=== PATIENT | female | born 1975 | race Caucasian/White ===

== ENCOUNTER 2016-03-19 20:55 | Inpatient (IN) | payer SELFPAY ==
[~2016-03-19] VITALS: Ht 170.2 cm; Wt 97.6 kg
[~2016-03-19 20:55] MED LIST: AMOX1TAB61 PO; ATOR10TA PO; AZIT250T PO; BENZ200C39 PO; CIPR500T94 PO; CYCL10TA2 PO; CYCL5TAB PO; DIAZ5TAB PO; ESCI20TA10 PO; FLUT9.9S NS; GABA-586 PO; HYDR-971 PO; HYDR15SO4 PO; LISI10TA2 PO; LORA10TA68 PO; MELO-150 PO; MORP15TA3 PO; NAPR375T3 PO; OXYC1TAB6 PO; PARO10TA24 PO; PRED20TA PO; PRED50TA PO; PROAIR RESPICL90 MCG IH; PROM5SYR2 PO; QUET50TA8 PO; TOPI25TA32 PO; ZOLP5TAB PO
[2016-03-19] MEDS ORDERED: IPRATRPIUM/ALBUTEROL 0.5/2.5MG 3 ML NEBU. NEB ONE ×2 (21:00→21:30)
--- NOTE | 2016-03-19 21:26 | PHYS DOC ---
Past Medical History Past Medical History: Asthma, Fibromyalgia, High Cholesterol, Hypertension Additional Past Medical Histor: OA, DJD, MIGRANES, FIBROIDS, FIBROMYALGIA Past Surgical History: Cholecystectomy, , Tubal ligation Additional Past Surgical Histo: R OVARY REMOVED, Alcohol Use: None Drug Use: None Adult General Chief Complaint Chief Complaint: ASTHMA HPI HPI 40-year-old asthmatic female who has had a couple days of cough and some subjective fever. He has been using her nebulizer machine at home without relief. She denies ever needing hospitalization for her asthma. She denies ever needing intubation. She denies any significant chest pain. Patient is requiring nasal cannula oxygen right now and was saturating 90% on room air. Currently the patient is speaking in complete sentences on nasal cannula in no acute respiratory distress. She additionally claims history of hypercholesterolemia, hypertension, fibromyalgia. Review of Systems Review of Systems Constitutional: Has fever, denies chills [] Eyes: Denies change in visual acuity, redness, or eye pain [] HENT: Denies nasal congestion or sore throat [] Respiratory: Has cough, has shortness of breath [] Cardiovascular: No additional information not addressed in HPI [] GI: Denies abdominal pain, nausea, vomiting, bloody stools or diarrhea [] : Denies dysuria or hematuria [] Musculoskeletal: Denies back pain or joint pain [] Integument: Denies rash or skin lesions [] Neurologic: Denies headache, focal weakness or sensory changes [] Endocrine: Denies polyuria or polydipsia [] Current Medications Current Medications Current Medications Medications (Trade) Dose Ordered Sig/Lan Start Time Stop Time Status Last Admin Dose Admin Albuterol Sulfate 10 mg 10 mg 1X ONCE 03/19/16 22:00 03/19/16 22:01 DC 03/19/16 23:29 10 MG Albuterol/ Ipratropium (Duoneb) 3 ml 1X ONCE 03/19/16 21:30 03/19/16 21:31 DC 03/19/16 21:22 3 ML Magnesium Sulfate/ Dextrose (Magnesium Sulfate PREMIX 1GM) 100 ml @ 100 mls/hr 1X ONCE 03/19/16 22:15 03/19/16 23:14 DC 03/19/16 22:10 100 MLS/HR Methylprednisolone Sodium Succinate (Solu-Medrol 125mg Vial) 125 mg 1X ONCE 03/19/16 21:30 03/19/16 21:31 DC 03/19/16 21:30 125 MG Potassium Chloride (Klor-Con) 60 meq 1X ONCE 03/19/16 22:00 03/19/16 22:01 DC 03/19/16 22:10 60 MEQ Allergies Allergies Allergies Coded Allergies Type Severity Reaction Last Updated Verified No Known Drug Allergies 08/03/14 No Physical Exam Physical Exam Constitutional: Well developed, well nourished, no acute distress, non-toxic appearance. [] HENT: Normocephalic, atraumatic, bilateral external ears normal, oropharynx moist, no oral exudates, nose normal. [] Eyes: PERRLA, EOMI, conjunctiva normal, no discharge. [] Neck: Normal range of motion, no tenderness, supple, no stridor. [] Cardiovascular:Heart rate regular rhythm, no murmur [] Lungs & Thorax: Moderate wheezing expiratory bilaterally in no acute distress [ ] Abdomen: Bowel sounds normal, soft, no tenderness, no masses, no pulsatile masses. [] Skin: Warm, dry, no erythema, no rash. [] Back: No tenderness, no CVA tenderness. [] Extremities: No tenderness, no cyanosis, no clubbing, ROM intact, no edema. [] Neurologic: Alert and oriented X 3, normal motor function, normal sensory function, no focal deficits noted. [] Psychologic: Affect normal, judgement normal, mood normal. [] Current Patient Data Vital Signs Vital Signs Date Time Temp Pulse Resp B/P Pulse Ox O2 Delivery O2 Flow Rate FiO2 03/19/16 23:29 94 Nasal Cannula 2.0 03/19/16 21:06 99.8 89 24 163/92 99.8 Lab Values Laboratory Tests Test 03/19/16 21:02 03/19/16 21:25 White Blood Count 14.6x10^3/uL (4.0-11.0) H Red Blood Count 4.82x10^6/uL (3.50-5.40) Hemoglobin 15.3g/dL (12.0-15.5) Hematocrit 44.4% (36.0-47.0) Mean Corpuscular Volume 92fL (79-100) Mean Corpuscular Hemoglobin 32pg (25-35) Mean Corpuscular Hemoglobin Concent 34g/dL (31-37) Red Cell Distribution Width 13.8% (11.5-14.5) Platelet Count 262x10^3/uL (140-400) Neutrophils (%) (Auto) 61% (31-73) Lymphocytes (%) (Auto) 15% (24-48) L Monocytes (%) (Auto) 6% (0-9) Eosinophils (%) (Auto) 18% (0-3) H Basophils (%) (Auto) 1% (0-3) Neutrophils # (Auto) 8.9x10^3uL (1.8-7.7) H Lymphocytes # (Auto) 2.1x10^3/uL (1.0-4.8) Monocytes # (Auto) 0.8x10^3/uL (0.0-1.1) Eosinophils # (Auto) 2.6x10^3/uL (0.0-0.7) H Basophils # (Auto) 0.1x10^3/uL (0.0-0.2) Segmented Neutrophils % 61% (35-66) Lymphocytes % 12% (24-48) L Monocytes % 8% (0-10) Eosinophils % 16% (0-5) H Basophils % 3% (0-3) Platelet Estimate Adequate (ADEQUATE) Sodium Level 143mmol/L (136-145) Potassium Level 2.7mmol/L (3.5-5.1) *L Chloride Level 106mmol/L (98-107) Carbon Dioxide Level 30mmol/L (21-32) Anion Gap 7 (6-14) Blood Urea Nitrogen 15mg/dL (7-20) Creatinine 1.4mg/dL (0.6-1.0) H Estimated GFR (Cockcroft-Gault) 41.6 Glucose Level 89mg/dL (70-99) Calcium Level 9.5mg/dL (8.5-10.1) Influenza Type A Antigen Negative (NEGATIVE) Influenza Type B Antigen Negative (NEGATIVE) Laboratory Tests 03/19/16 21:02 Laboratory Tests 03/19/16 21:02 EKG EKG [] Radiology/Procedures Radiology/Procedures One view of the chest as interpreted by me does not demonstrate an acute cardiopulmonary process. Course & Med Decision Making Course & Med Decision Making Pertinent Labs and Imaging studies reviewed. (See chart for details) This 40-year-old asthmatic is requiring submental oxygen at this time saturating at 95% on 2 L nasal cannula. Patient will obtain several DuoNeb treatments and IV steroids. I will obtain a chest film and rapid influenza swabs. Until I am able to wean the patient off oxygen after breathing treatments she will continue to be observed. Upon my second reassessment, the patient still is requiring supplemental oxygen. I will now be administering a continuous nebulizer and giving her a dose of magnesium as this is a significant asthma exacerbation. She'll still be continually observed for another hour and if she does not improve she will be admitted to the hospital. Upon my final reassessment after a continuous nebulizer and magnesium, the patient feels symptomatically better but is still requiring supplemental oxygen. The patient off supplemental oxygen continues to desaturate into the low 90s and when she ambulates she saturates at 90% on room air. Due to the fact that she is requiring supplemental oxygen I'll be admitting her to the hospital for asthma exacerbation. Her laboratory workup and chest film rule out unremarkable. I discussed the need for admission with the hospitalist, Dr. Saxena, who agreed to accept the patient for further evaluation and treatment. She was hypokalemic at 2.7 and potassium replacement was ordered. Dragon Disclaimer Dragon Disclaimer This electronic medical record was generated, in whole or in part, using a voice recognition dictation system. Departure Departure Impression: Primary Impression: Asthma exacerbation Disposition: ADMITTED INPATIENT Admitting Physician: Addison Saxena Condition: STABLE Referrals: NO PCP (PCP) RENEE WANG DO Mar 19, 2016 21:27
[2016-03-19] MEDS ORDERED: methylPREDNISolone SOD SUCC PF 125 MG/2 ML VIAL. IV ONE (21:30)
[2016-03-19 21:33] LABS: BASO # 0.1 x10^3/uL (0.0-0.2); BASO % 1 % (0-3); EOS % 18 % (0-3); HEMATOCRIT 44.4 % (36.0-47.0); HEMOGLOBIN 15.3 g/dL (12.0-15.5); LYMPH # 2.1 x10^3/uL (1.0-4.8); LYMPH % 15 % (24-48); MEAN CORPUSCULAR HEMOGLOBIN 32 pg (25-35); MEAN CORPUSCULAR HGB CONC 34 g/dL (31-37); MEAN CORPUSCULAR VOLUME 92 fL (79-100); MONO % 6 % (0-9); NEUT % 61 % (31-73); PLATELET COUNT 262 x10^3/uL (140-400); RED BLOOD COUNT 4.82 x10^6/uL (3.50-5.40); RED CELL DISTRIBUTION WIDTH 13.8 % (11.5-14.5); WHITE BLOOD COUNT 14.6 x10^3/uL (4.0-11.0)
[2016-03-19 21:46] LABS: CALCIUM 9.5 mg/dL (8.5-10.1); CREATININE 1.4 mg/dL (0.6-1.0); GFR 41.6
[2016-03-19 21:52] LABS: POTASSIUM 2.7 mmol/L (3.5-5.1)
[2016-03-19 21:54] LABS: OBC FLU VALID
[2016-03-19] MEDS ORDERED: POTASSIUM CHLORIDE 20 MEQ TABLET.ER. PO ONE (22:00)
[2016-03-19] MEDS ORDERED: ALBUTEROL SULFATE 2.5 MG/3 ML NEBU. CONT NEB ONE (22:00)
[2016-03-19] MEDS ORDERED: MAGNESIUM SULFATE 1GM 100 ML IV ONE (22:15)
[2016-03-19 22:36] LABS: % BASOS 3 % (0-3); % EOS 16 % (0-5); PLT ESTIMATE ADEQUATE (ADEQUATE)
[2016-03-20] MEDS ORDERED: NITROGLYCERIN SUBLINGUAL 0.4 MG BOTTLE OF 25. SL PRN (01:00)
[2016-03-20] MEDS ORDERED: ONDANSETRON PF 4 MG/2 ML VIAL. IV PRN (01:00)
--- NOTE | 2016-03-20 05:04 | ACF ---
Admit Criteria Forms Admit Criteria Forms Admit Criteria Forms ASTHMA Clinical Indications for Admission to Inpatient Care (Place 'X' for any and all applicable criteria): Admission is indicated for ANY ONE of the following (1)(2)(3)(4)(5): [ ]I. Absent or markedly diminished breath sounds (silent chest) [X]II. Oxygen saturation < 92% [ ]III. PaCO2 = / > 42 mm Hg (5.6 kPa) [ ]IV. Peak expiratory flow rate < 40% of predicted or personal best after treatment. [ ]V. Peak expiratory flow rate < 33% of predicted or personal before after treatment [ ]. Change in mental status [ ]VII. Ventilatory support required [ ]VIII. PaO2 < 60 mm Hg (8.0 kPa) [ ]IX. Cyanosis [ ]X. Cardiac dysrhythmia (e.g., bradycardia) [ ]XI. Hemodynamic instability [ ]XII. Radiographic evidence of complication requiring inpatient treatment (e.g., pneumonia, pneumothorax) [ ]XIII. Inpatient admission required rather than observation care (also use Asthma: Observation Care guideline as appropriate) because of ANY ONE of the following: [ ]a) Respiratory finding that is severe or persistent (eg, dyspnea, tachypnea, accessory muscle use) [ ]b) Airflow measurements less than 60% of predicted or personal best that persist (e.g., over 24 hours) or worsen despite treatments [ ]c) Supplemental oxygen or respiratory treatments for over 24 hours that are performable only in acute inpatient setting [ ]d) Other condition, treatment or monitoring requiring inpatient admission. Extended stay beyond goal length of stay may be needed for (26)(27)(28): [ ]a) Severe respiratory failure (23) (29) (30) [ ]b) Secondary causes and complications (25) [ ]c) Status asthmaticus [ ]d) Chronic obstructive asthma [ ]e) Older patients (29) [ ]f) Slow resolution [ ]g) Clinically significant exacerbation of comorbidities (eg, paul. heart failure, atrial fibrillation) The original [facility] content created by [employer] has been revised. The portions of the content which have been revised are identified through the use of italic text or in bold, and [facility] [employer] has neither reviewed nor approved the modified material. All other unmodified content is copyright [facility] Please see references footnoted in the original [facility] edition 2016 ROXANNA LAINEZ Mar 20, 2016 05:04
[2016-03-20 08:59] VITALS: BP 130/80
[2016-03-20] MEDS: IPRATRPIUM/ALBUTEROL 0.5/2.5MG 3 ML NEBU. NEB SCH ×4 (09:04→19:49)
[2016-03-20 09:08] VITALS: BP 128/85
--- NOTE | 2016-03-20 09:21 | RAD ---
INDICATION: sob COMPARISON: 02/01/2016 FINDINGS: Single view of chest obtained. No focal airspace consolidation. Mediastinal contour is unremarkable. No gross osseous destructive lesion. IMPRESSION: No focal airspace consolidation or edema.
[2016-03-20] MEDS ORDERED: ACETAMINOPHEN 325 MG TABLET. PO ONE (10:15)
[2016-03-20 11:10] VITALS: BP 145/88
[2016-03-20] MEDS ORDERED: NON FORMULARY ITEM (Albuterol Sulfate (Proair Respiclick) 1 PUFF) IH PRN (11:30)
[2016-03-20] MEDS ORDERED: HYDROCODONE/APAP 5/325MG TABLET. PO PRN ×2 (11:30)
[2016-03-20] MEDS ORDERED: HYDROCODONE/APAP 7.5/325MG ORAL 15 ML SOLUTION. PO PRN (11:30)
[2016-03-20] MEDS ORDERED: MORPHINE ER 15 MG TABLET.ER PO SCH (12:00)
[2016-03-20] MEDS ORDERED: FLUTICASONE 50MCG/NASAL SPRAY 16GM BOTTLE. NS SCH (12:00)
[2016-03-20] MEDS ORDERED: AZITHROMYCIN 250 MG TABLET PO SCH (12:00)
[2016-03-20] MEDS ORDERED: PREDNISONE 20 MG TABLET PO SCH (12:00)
[2016-03-20] MEDS ORDERED: PROMETH/CODEINE 6.25/10MG 5 ML SYRUP. PO PRN (12:30)
[2016-03-20] MEDS: ESCITALOPRAM 10 MG TABLET. PO SCH (12:49)
[2016-03-20] MEDS: MELOXICAM 7.5 MG TABLET PO SCH (12:50)
[2016-03-20] MEDS: DIAZEPAM 5 MG TABLET PO SCH ×2 (12:51→21:40)
[2016-03-20] MEDS: TOPIRAMATE 25 MG TABLET. PO SCH (12:51)
[2016-03-20] MEDS: LISINOPRIL 10 MG TABLET PO SCH (12:51)
[2016-03-20] MEDS: CETIRIZINE HCL 10 MG TABLET PO SCH (12:51)
[2016-03-20] MEDS: CEFTRIAXONE SODIUM 1 GM in IV NORMAL SALINE 50ML 50 ML IV SCH (12:52)
[2016-03-20] MEDS ORDERED: GABAPENTIN 300 MG CAPSULE. PO SCH (14:00)
[2016-03-20] MEDS ORDERED: CYCLOBENZAPRINE 10 MG TABLET. PO SCH ×2 (14:00)
[2016-03-20] MEDS ORDERED: BENZONATATE 100 MG CAPSULE. PO SCH (14:00)
[2016-03-20 15:24] VITALS: BP 137/84
--- NOTE | 2016-03-20 16:29 | HP ---
ADMIT DATE: 03/20/2016 CHIEF COMPLAINT: Shortness of breath, cough, wheezing. HISTORY OF PRESENT ILLNESS: The patient is a pleasant 40-year-old female who has multiple medical issues. She is also on 28 medications. Basically, she presents with asthma. She is short of breath. She has cough and she has got wheezing. I have discussed the case with the ER physician. We are going to admit the patient and consult pulmonary medicine, put her on IV steroids, breathing treatments and oxygen. PAST MEDICAL HISTORY: Polypharmacy, asthma, hyperlipidemia, anxiety, muscle spasms, depression, chronic pain, hypertension, arthritis, insomnia. ALLERGIES: None. FAMILY HISTORY: Hypertension. SOCIAL HISTORY: She quit smoking years ago. 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 She does not drink or take drugs either. MEDICATIONS: Reviewed, please refer to the MRAD. REVIEW OF SYSTEMS: GENERAL: No history of weight change, weakness or fevers. SKIN: No bruising, hair changes or rashes. EYES: No blurred, double or loss of vision. NOSE AND THROAT: No history of nosebleeds, hoarseness or sore throat. HEART: No history of palpitations, chest pain or shortness of breath on exertion. LUNGS: The patient complains of shortness of breath. GASTROINTESTINAL: Denies changes in appetite, nausea, vomiting, diarrhea or constipation. GENITOURINARY: No history of frequency, urgency, hesitancy or nocturia. NEUROLOGIC: Denies history of numbness, tingling, tremor or weakness. PSYCHIATRIC: No history of panic, anxiety or depression. ENDOCRINE: No history of heat or cold intolerance, polyuria or polydipsia. EXTREMITIES: Denies muscle weakness, joint pain, pain on walking or stiffness. PHYSICAL EXAMINATION: VITAL SIGNS: Temperature afebrile, pulse 94, respirations 18, blood pressure 130/80, O2 sat 91% on 3 liters. GENERAL: She is alert, cooperative, anxious. HEART: Distant S1, S2. LUNGS: Diffuse wheezing and she has a cough. ABDOMEN: Has positive bowel sounds, soft, nontender. EXTREMITIES: No edema. SKIN: No rashes. She has got some tattoos. ENDOCRINE: No thyromegaly. LYMPHATICS: No cervical nodes. HEMATOPOIETIC: No bruising. LABORATORY DATA: White count 14, hemoglobin 15, platelets 262. Electrolytes: Sodium 143, potassium 2.7, chloride 106, bicarb 30, BUN 15, creatinine 1.4, glucose 89. ASSESSMENT AND PLAN: Asthma exacerbation in a middle-aged female with leukocytosis and hypokalemia and some chronic renal insufficiency. The patient has been admitted. I will start her home meds. We will start IV steroids, breathing treatments, oxygen, consult pulmonary medicine, replace her potassium, frequent labs, IV Rocephin. YOANA ROD DO DR: GAVIOTA/su JOB#: [id number] / [id number]
[2016-03-20] MEDS ORDERED: ACETAMINOPHEN 650 MG/20.3 ML SOLUTION. PEG PRN (17:15)
[2016-03-20 19:00] VITALS: BP 107/69
--- NOTE | 2016-03-20 19:12 | PDOC ---
PULMONARY PROGRESS NOTES Vitals Vital Signs Date Time Temp Pulse Resp B/P Pulse Ox O2 Delivery O2 Flow Rate FiO2 03/20/16 16:17 Nasal Cannula 2.0 03/20/16 15:39 92 03/20/16 15:24 98.4 101 18 137/84 98.4 Labs Laboratory Tests Test 03/19/16 21:02 03/19/16 21:25 03/20/16 15:10 White Blood Count 14.6x10^3/uL (4.0-11.0) Red Blood Count 4.82x10^6/uL (3.50-5.40) Hemoglobin 15.3g/dL (12.0-15.5) Hematocrit 44.4% (36.0-47.0) Mean Corpuscular Volume 92fL (79-100) Mean Corpuscular Hemoglobin 32pg (25-35) Mean Corpuscular Hemoglobin Concent 34g/dL (31-37) Red Cell Distribution Width 13.8% (11.5-14.5) Platelet Count 262x10^3/uL (140-400) Neutrophils (%) (Auto) 61% (31-73) Lymphocytes (%) (Auto) 15% (24-48) Monocytes (%) (Auto) 6% (0-9) Eosinophils (%) (Auto) 18% (0-3) Basophils (%) (Auto) 1% (0-3) Neutrophils # (Auto) 8.9x10^3uL (1.8-7.7) Lymphocytes # (Auto) 2.1x10^3/uL (1.0-4.8) Monocytes # (Auto) 0.8x10^3/uL (0.0-1.1) Eosinophils # (Auto) 2.6x10^3/uL (0.0-0.7) Basophils # (Auto) 0.1x10^3/uL (0.0-0.2) Segmented Neutrophils % 61% (35-66) Lymphocytes % 12% (24-48) Monocytes % 8% (0-10) Eosinophils % 16% (0-5) Basophils % 3% (0-3) Platelet Estimate Adequate (ADEQUATE) Sodium Level 143mmol/L (136-145) Potassium Level 2.7mmol/L (3.5-5.1) Chloride Level 106mmol/L (98-107) Carbon Dioxide Level 30mmol/L (21-32) Anion Gap 7 (6-14) Blood Urea Nitrogen 15mg/dL (7-20) Creatinine 1.4mg/dL (0.6-1.0) Estimated GFR (Cockcroft-Gault) 41.6 Glucose Level 89mg/dL (70-99) Calcium Level 9.5mg/dL (8.5-10.1) Influenza Type A Antigen Negative (NEGATIVE) Influenza Type B Antigen Negative (NEGATIVE) Lactic Acid Level 3.0mmol/L (0.4-2.0) Laboratory Tests Test 03/19/16 21:02 03/19/16 21:25 03/20/16 15:10 White Blood Count 14.6x10^3/uL (4.0-11.0) Red Blood Count 4.82x10^6/uL (3.50-5.40) Hemoglobin 15.3g/dL (12.0-15.5) Hematocrit 44.4% (36.0-47.0) Mean Corpuscular Volume 92fL (79-100) Mean Corpuscular Hemoglobin 32pg (25-35) Mean Corpuscular Hemoglobin Concent 34g/dL (31-37) Red Cell Distribution Width 13.8% (11.5-14.5) Platelet Count 262x10^3/uL (140-400) Neutrophils (%) (Auto) 61% (31-73) Lymphocytes (%) (Auto) 15% (24-48) Monocytes (%) (Auto) 6% (0-9) Eosinophils (%) (Auto) 18% (0-3) Basophils (%) (Auto) 1% (0-3) Neutrophils # (Auto) 8.9x10^3uL (1.8-7.7) Lymphocytes # (Auto) 2.1x10^3/uL (1.0-4.8) Monocytes # (Auto) 0.8x10^3/uL (0.0-1.1) Eosinophils # (Auto) 2.6x10^3/uL (0.0-0.7) Basophils # (Auto) 0.1x10^3/uL (0.0-0.2) Segmented Neutrophils % 61% (35-66) Lymphocytes % 12% (24-48) Monocytes % 8% (0-10) Eosinophils % 16% (0-5) Basophils % 3% (0-3) Platelet Estimate Adequate (ADEQUATE) Sodium Level 143mmol/L (136-145) Potassium Level 2.7mmol/L (3.5-5.1) Chloride Level 106mmol/L (98-107) Carbon Dioxide Level 30mmol/L (21-32) Anion Gap 7 (6-14) Blood Urea Nitrogen 15mg/dL (7-20) Creatinine 1.4mg/dL (0.6-1.0) Estimated GFR (Cockcroft-Gault) 41.6 Glucose Level 89mg/dL (70-99) Calcium Level 9.5mg/dL (8.5-10.1) Influenza Type A Antigen Negative (NEGATIVE) Influenza Type B Antigen Negative (NEGATIVE) Lactic Acid Level 3.0mmol/L (0.4-2.0) Medications Active Scripts Medications Dose Route/Sig Days Date Category Zithromax (Azithromycin) 250 Mg Tablet 250 Mg PO DAILY 02/02/16 Rx Prometh-Codein 6.25-10 mg/5 ml (Promethazine HCl/Codeine) 5 Ml Syrup 5 Ml PO Q6-8HRS PRN 02/02/16 Rx Proair Respiclick (Albuterol Sulfate) 90 Mcg Aer.pow.ba 1 Puff IH PRN Q6HRS PRN 02/02/16 Rx Prednisone 50 Mg Tablet 1 Tab PO DAILY 02/02/16 Rx Benzonatate 200 Mg Capsule 1 Cap PO TID 01/17/16 Rx Prednisone 20 Mg Tablet 40 Mg PO DAILY 5 01/17/16 Rx Cyclobenzaprine Hcl 10 Mg Tablet 1 Tab PO TID 11/08/15 Rx Hydrocodone-Apap 7.5-325/15 Soln (Hydrocodone Bit/Acetaminophen) 15 Ml Solution 15 Ml PO PRN Q6HRS PRN 11/08/15 Rx Cipro (Ciprofloxacin Hcl) 500 Mg Tablet 1 Tab PO BID 11/08/15 Rx Flonase Allergy Relief (Fluticasone Propionate) 9.9 Ml Sawyer.susp 2 Sprays NS DAILY 09/27/15 Rx Prednisone 50 Mg Tablet 1 Tab PO DAILY 09/27/15 Rx [place] 5-325 Tablet (Acetaminophen/Hydrocodone Bitart) 1 Each Tablet 1 Tab PO PRN Q6HRS PRN 09/27/15 Rx Augmentin 875-125 Tablet (Amoxicillin/Potassium Clav) 1 Each Tablet 1 Tab PO BID 09/27/15 Rx [place] 5-325 Tablet (Acetaminophen/Hydrocodone Bitart) 1 Each Tablet 1 Tab PO PRN Q6HRS PRN 06/29/15 Rx Cyclobenzaprine Hcl 10 Mg Tablet 10 Mg PO TID 06/29/15 Rx Ambien (Zolpidem Tartrate) 5 Mg Tablet 1 Tab PO QHS 08/03/14 Reported Lexapro (Escitalopram Oxalate) 20 Mg Tablet 1 Tab PO DAILY 08/03/14 Reported Meloxicam 15 Mg Tablet 1 Tab PO DAILY 08/03/14 Reported Claritin (Loratadine) 10 Mg Tablet 1 Tab PO DAILY 09/16/13 Reported Gabapentin 300 Mg Capsule 1 Cap PO TID 09/16/13 Reported Morphine Sulfate Er (Morphine Sulfate) 15 Mg Tablet.er 15 Mg PO BID 05/29/13 Reported Valium (Diazepam) 5 Mg Tablet 5 Mg PO 03/13/13 Reported Cyclobenzaprine Hcl 5 Mg Tablet 5 Mg PO 03/13/13 Reported Lisinopril 10 Mg Tablet 10 Mg PO 03/13/13 Reported Lipitor (Atorvastatin Calcium) 10 Mg Tablet 10 Mg PO 03/13/13 Reported Topamax (Topiramate) 25 Mg Tablet 25 Mg PO 03/13/13 Reported Oxycodon-Acetaminophen 2.5-325 (Oxycodone Hcl/Acetaminophen) 1 Each Tablet 1 Each PO 03/13/13 Reported Impression . AECOPADIN DELACRUZ MD Mar 20, 2016 19:12
[2016-03-20] MEDS ORDERED: methylPREDNISolone SOD SUCC PF 125 MG/2 ML VIAL. IV SCH (20:00)
[2016-03-20] MEDS ORDERED: AMOXICILLIN/K CLAV 875/125MG TABLET. PO SCH (21:00)
[2016-03-20] MEDS ORDERED: NON FORMULARY ITEM (Ciprofloxacin Hcl (Cipro) 1 TAB) PO SCH (21:00)
[2016-03-20] MEDS: ATORVASTATIN CALCIUM 10 MG TABLET. PO SCH (21:40)
[2016-03-20] MEDS: BENZONATATE 100 MG CAPSULE. PO SCH (21:40)
[2016-03-20] MEDS: ZOLPIDEM 5 MG TABLET. PO SCH (21:40)
[2016-03-20 23:28] VITALS: BP 117/74
[2016-03-21 03:00] VITALS: BP 121/68
--- NOTE | 2016-03-21 06:07 | CONS ---
DATE OF CONSULTATION: 03/20/2016 ATTENDING PHYSICIAN: Dr. Mahin Castelan. REASON FOR CONSULTATION: The patient is seen in pulmonary consultation at the request of Dr. Castelan for increasing shortness of air and history of asthma. HISTORY OF PRESENT ILLNESS: The patient is a 40-year-old who presented to the Emergency Room with a 3-day history of subjective fever, increasing shortness of breath, using a nebulizer machine at home with no significant improvement. She states that she has a history of asthma, adult onset. She did not have asthma as a child. She used to smoke, but then smoked a whole lot, presented with the above, was admitted, I was asked to see in consultation. She denies any nausea, vomiting, diarrhea. PAST MEDICAL HISTORY: COPD with an asthma component, fibromyalgia, hyperlipidemia, hypertension, migraine, fibroids. PAST SURGICAL HISTORY: Status post cholecystectomy, , and tubal ligation. ALLERGIES: No known drug allergies. REVIEW OF SYSTEMS: As indicated above, otherwise 10-point system was reviewed and negative. CURRENT MEDICATION: List was reviewed. Please see the MRAD. SOCIAL HISTORY: She denies any current use of tobacco or alcohol. PHYSICAL EXAMINATION: GENERAL: The patient was in no respiratory distress. VITAL SIGNS: Stable. O2 saturation was greater than 92%, currently on 2 liters. HEENT: Eyes, the sclerae were nonicteric. NECK: Jugular venous distention was not elevated. No lymphadenopathy. CHEST: Full expansion. LUNGS: Adequate airway flow, no wheezes. CARDIOVASCULAR: Regular rate and rhythm with S1, S2, no S3. ABDOMEN: Soft, nontender, nondistended. EXTREMITIES: No clubbing, cyanosis or edema. NEUROLOGIC: The patient was awake, alert, following commands. A detailed neuro exam was not performed. LABORATORY DATA: Reviewed. Chest x-ray was clear. IMPRESSION: 1. Acute exacerbation of chronic obstructive pulmonary disease. 2. Acute nonspecific bronchitis. 3. History of tobacco dependence. PLAN: 1. I concur with current medical management including steroids and antibiotics. 2. Nebulized treatments. 3. Continue home medications. I do appreciate the privilege in sharing in the patient's care. ADIN JUDD MD DR: VERONICA/su JOB#: [id number] / [id number]
[2016-03-21 06:47] LABS: BASO % 0 % (0-3); EOS % 0 % (0-3); HEMATOCRIT 43.4 % (36.0-47.0); HEMOGLOBIN 15.1 g/dL (12.0-15.5); LYMPH # 1.1 x10^3/uL (1.0-4.8); LYMPH % 5 % (24-48); MEAN CORPUSCULAR HEMOGLOBIN 32 pg (25-35); MEAN CORPUSCULAR HGB CONC 35 g/dL (31-37); MEAN CORPUSCULAR VOLUME 91 fL (79-100); MONO % 2 % (0-9); NEUT % 93 % (31-73); PLATELET COUNT 267 x10^3/uL (140-400); RED BLOOD COUNT 4.79 x10^6/uL (3.50-5.40); RED CELL DISTRIBUTION WIDTH 14.2 % (11.5-14.5)
[2016-03-21 07:00] VITALS: BP 123/83
[2016-03-21 07:03] LABS: CALCIUM 9.1 mg/dL (8.5-10.1); CREATININE 1.2 mg/dL (0.6-1.0); GFR 49.8; POTASSIUM 3.9 mmol/L (3.5-5.1)
--- NOTE | 2016-03-21 08:43 | PDOC ---
PROGRESS NOTES Chief Complaint Chief Complaint Acute hypoxic respir distress ASSESSMENT AND PLAN: 1. Asthma exacerbation: on steroids - switch to PO; nebs, suppl O2. also ceftriax. 2. HTN: well controlled on home meds 3. HLD: on statin 4. OA, fibromyalgia: continue PO home meds 5. Migraines: on topamax 6. Dispo: anticipate home in AM Vitals Vitals Vital Signs Date Time Temp Pulse Resp B/P Pulse Ox O2 Delivery O2 Flow Rate FiO2 03/21/16 07:00 98.3 102 20 123/83 90 Nasal Cannula 2.0 98.3 Physical Exam General: Alert, Oriented X3, Cooperative, No acute distress Heart: Regular rate Lungs: Wheezing Abdomen: Normal bowel sounds, No tenderness Extremities: No edema Skin: No rashes Labs LABS Laboratory Tests Test 03/20/16 15:10 03/21/16 06:05 Lactic Acid Level 3.0mmol/L (0.4-2.0) White Blood Count 21.0x10^3/uL (4.0-11.0) Red Blood Count 4.79x10^6/uL (3.50-5.40) Hemoglobin 15.1g/dL (12.0-15.5) Hematocrit 43.4% (36.0-47.0) Mean Corpuscular Volume 91fL (79-100) Mean Corpuscular Hemoglobin 32pg (25-35) Mean Corpuscular Hemoglobin Concent 35g/dL (31-37) Red Cell Distribution Width 14.2% (11.5-14.5) Platelet Count 267x10^3/uL (140-400) Neutrophils (%) (Auto) 93% (31-73) Lymphocytes (%) (Auto) 5% (24-48) Monocytes (%) (Auto) 2% (0-9) Eosinophils (%) (Auto) 0% (0-3) Basophils (%) (Auto) 0% (0-3) Neutrophils # (Auto) 19.5x10^3uL (1.8-7.7) Lymphocytes # (Auto) 1.1x10^3/uL (1.0-4.8) Monocytes # (Auto) 0.4x10^3/uL (0.0-1.1) Eosinophils # (Auto) 0.0x10^3/uL (0.0-0.7) Basophils # (Auto) 0.0x10^3/uL (0.0-0.2) Sodium Level 144mmol/L (136-145) Potassium Level 3.9mmol/L (3.5-5.1) Chloride Level 107mmol/L (98-107) Carbon Dioxide Level 24mmol/L (21-32) Anion Gap 13 (6-14) Blood Urea Nitrogen 19mg/dL (7-20) Creatinine 1.2mg/dL (0.6-1.0) Estimated GFR (Cockcroft-Gault) 49.8 Glucose Level 137mg/dL (70-99) Calcium Level 9.1mg/dL (8.5-10.1) Review of Systems Review of Systems not feeling well this AM. gen malaise, chest tightness Comment Review of Relevant ELZBIETA MOREL MD Mar 21, 2016 08:43
[2016-03-21] MEDS ORDERED: ALBUTEROL SULFATE 2.5 MG/3 ML NEBU. NEB PRN (08:45)
--- NOTE | 2016-03-21 08:47 | PDOC ---
PULMONARY PROGRESS NOTES Subjective PT WITH NO INCREASE SOA Vitals Vital Signs Date Time Temp Pulse Resp B/P Pulse Ox O2 Delivery O2 Flow Rate FiO2 03/21/16 08:35 92 Nasal Cannula 2.0 03/21/16 07:00 98.3 102 20 123/83 98.3 ROS: No Nausea, No Chest Pain, No Abdominal Pain, No Increase Cough General: Alert Lungs: Clear Cardiovascular: S1, S2 Abdomen: Soft, Non-tender Neuro Exam: Alert Extremities: No Edema Skin: Warm Labs Laboratory Tests Test 03/19/16 21:02 03/19/16 21:25 03/20/16 15:10 03/21/16 06:05 White Blood Count 14.6x10^3/uL (4.0-11.0) 21.0x10^3/uL (4.0-11.0) Red Blood Count 4.82x10^6/uL (3.50-5.40) 4.79x10^6/uL (3.50-5.40) Hemoglobin 15.3g/dL (12.0-15.5) 15.1g/dL (12.0-15.5) Hematocrit 44.4% (36.0-47.0) 43.4% (36.0-47.0) Mean Corpuscular Volume 92fL (79-100) 91fL (79-100) Mean Corpuscular Hemoglobin 32pg (25-35) 32pg (25-35) Mean Corpuscular Hemoglobin Concent 34g/dL (31-37) 35g/dL (31-37) Red Cell Distribution Width 13.8% (11.5-14.5) 14.2% (11.5-14.5) Platelet Count 262x10^3/uL (140-400) 267x10^3/uL (140-400) Neutrophils (%) (Auto) 61% (31-73) 93% (31-73) Lymphocytes (%) (Auto) 15% (24-48) 5% (24-48) Monocytes (%) (Auto) 6% (0-9) 2% (0-9) Eosinophils (%) (Auto) 18% (0-3) 0% (0-3) Basophils (%) (Auto) 1% (0-3) 0% (0-3) Neutrophils # (Auto) 8.9x10^3uL (1.8-7.7) 19.5x10^3uL (1.8-7.7) Lymphocytes # (Auto) 2.1x10^3/uL (1.0-4.8) 1.1x10^3/uL (1.0-4.8) Monocytes # (Auto) 0.8x10^3/uL (0.0-1.1) 0.4x10^3/uL (0.0-1.1) Eosinophils # (Auto) 2.6x10^3/uL (0.0-0.7) 0.0x10^3/uL (0.0-0.7) Basophils # (Auto) 0.1x10^3/uL (0.0-0.2) 0.0x10^3/uL (0.0-0.2) Segmented Neutrophils % 61% (35-66) Lymphocytes % 12% (24-48) Monocytes % 8% (0-10) Eosinophils % 16% (0-5) Basophils % 3% (0-3) Platelet Estimate Adequate (ADEQUATE) Sodium Level 143mmol/L (136-145) 144mmol/L (136-145) Potassium Level 2.7mmol/L (3.5-5.1) 3.9mmol/L (3.5-5.1) Chloride Level 106mmol/L (98-107) 107mmol/L (98-107) Carbon Dioxide Level 30mmol/L (21-32) 24mmol/L (21-32) Anion Gap 7 (6-14) 13 (6-14) Blood Urea Nitrogen 15mg/dL (7-20) 19mg/dL (7-20) Creatinine 1.4mg/dL (0.6-1.0) 1.2mg/dL (0.6-1.0) Estimated GFR (Cockcroft-Gault) 41.6 49.8 Glucose Level 89mg/dL (70-99) 137mg/dL (70-99) Calcium Level 9.5mg/dL (8.5-10.1) 9.1mg/dL (8.5-10.1) Influenza Type A Antigen Negative (NEGATIVE) Influenza Type B Antigen Negative (NEGATIVE) Lactic Acid Level 3.0mmol/L (0.4-2.0) Laboratory Tests Test 03/20/16 15:10 03/21/16 06:05 Lactic Acid Level 3.0mmol/L (0.4-2.0) White Blood Count 21.0x10^3/uL (4.0-11.0) Red Blood Count 4.79x10^6/uL (3.50-5.40) Hemoglobin 15.1g/dL (12.0-15.5) Hematocrit 43.4% (36.0-47.0) Mean Corpuscular Volume 91fL (79-100) Mean Corpuscular Hemoglobin 32pg (25-35) Mean Corpuscular Hemoglobin Concent 35g/dL (31-37) Red Cell Distribution Width 14.2% (11.5-14.5) Platelet Count 267x10^3/uL (140-400) Neutrophils (%) (Auto) 93% (31-73) Lymphocytes (%) (Auto) 5% (24-48) Monocytes (%) (Auto) 2% (0-9) Eosinophils (%) (Auto) 0% (0-3) Basophils (%) (Auto) 0% (0-3) Neutrophils # (Auto) 19.5x10^3uL (1.8-7.7) Lymphocytes # (Auto) 1.1x10^3/uL (1.0-4.8) Monocytes # (Auto) 0.4x10^3/uL (0.0-1.1) Eosinophils # (Auto) 0.0x10^3/uL (0.0-0.7) Basophils # (Auto) 0.0x10^3/uL (0.0-0.2) Sodium Level 144mmol/L (136-145) Potassium Level 3.9mmol/L (3.5-5.1) Chloride Level 107mmol/L (98-107) Carbon Dioxide Level 24mmol/L (21-32) Anion Gap 13 (6-14) Blood Urea Nitrogen 19mg/dL (7-20) Creatinine 1.2mg/dL (0.6-1.0) Estimated GFR (Cockcroft-Gault) 49.8 Glucose Level 137mg/dL (70-99) Calcium Level 9.1mg/dL (8.5-10.1) Medications Active Scripts Medications Dose Route/Sig Days Date Category Zithromax (Azithromycin) 250 Mg Tablet 250 Mg PO DAILY 02/02/16 Rx Prometh-Codein 6.25-10 mg/5 ml (Promethazine HCl/Codeine) 5 Ml Syrup 5 Ml PO Q6-8HRS PRN 02/02/16 Rx Proair Respiclick (Albuterol Sulfate) 90 Mcg Aer.pow.ba 1 Puff IH PRN Q6HRS PRN 02/02/16 Rx Prednisone 50 Mg Tablet 1 Tab PO DAILY 02/02/16 Rx Benzonatate 200 Mg Capsule 1 Cap PO TID 01/17/16 Rx Prednisone 20 Mg Tablet 40 Mg PO DAILY 5 01/17/16 Rx Cyclobenzaprine Hcl 10 Mg Tablet 1 Tab PO TID 11/08/15 Rx Hydrocodone-Apap 7.5-325/15 Soln (Hydrocodone Bit/Acetaminophen) 15 Ml Solution 15 Ml PO PRN Q6HRS PRN 11/08/15 Rx Cipro (Ciprofloxacin Hcl) 500 Mg Tablet 1 Tab PO BID 11/08/15 Rx Flonase Allergy Relief (Fluticasone Propionate) 9.9 Ml [place].susp 2 Sprays NS DAILY 09/27/15 Rx Prednisone 50 Mg Tablet 1 Tab PO DAILY 09/27/15 Rx [place] 5-325 Tablet (Acetaminophen/Hydrocodone Bitart) 1 Each Tablet 1 Tab PO PRN Q6HRS PRN 09/27/15 Rx Augmentin 875-125 Tablet (Amoxicillin/Potassium Clav) 1 Each Tablet 1 Tab PO BID 09/27/15 Rx [place] 5-325 Tablet (Acetaminophen/Hydrocodone Bitart) 1 Each Tablet 1 Tab PO PRN Q6HRS PRN 06/29/15 Rx Cyclobenzaprine Hcl 10 Mg Tablet 10 Mg PO TID 06/29/15 Rx Ambien (Zolpidem Tartrate) 5 Mg Tablet 1 Tab PO QHS 08/03/14 Reported Lexapro (Escitalopram Oxalate) 20 Mg Tablet 1 Tab PO DAILY 08/03/14 Reported Meloxicam 15 Mg Tablet 1 Tab PO DAILY 08/03/14 Reported Claritin (Loratadine) 10 Mg Tablet 1 Tab PO DAILY 09/16/13 Reported Gabapentin 300 Mg Capsule 1 Cap PO TID 09/16/13 Reported Morphine Sulfate Er (Morphine Sulfate) 15 Mg Tablet.er 15 Mg PO BID 05/29/13 Reported Valium (Diazepam) 5 Mg Tablet 5 Mg PO 03/13/13 Reported Cyclobenzaprine Hcl 5 Mg Tablet 5 Mg PO 03/13/13 Reported Lisinopril 10 Mg Tablet 10 Mg PO 03/13/13 Reported Lipitor (Atorvastatin Calcium) 10 Mg Tablet 10 Mg PO 03/13/13 Reported Topamax (Topiramate) 25 Mg Tablet 25 Mg PO 03/13/13 Reported Oxycodon-Acetaminophen 2.5-325 (Oxycodone Hcl/Acetaminophen) 1 Each Tablet 1 Each PO 03/13/13 Reported Impression . 1. Acute exacerbation of chronic obstructive pulmonary disease. 2. Acute nonspecific bronchitis. 3. History of tobacco dependence. Plan . PT BETTER THIS AM OK TO D/C ON TAPER STEROIDS AND DOXY ADIN JUDD MD Mar 21, 2016 08:47
[2016-03-21] MEDS ORDERED: NON FORMULARY ITEM (Prednisone 1 TAB) PO SCH (09:00)
[2016-03-21] MEDS ORDERED: PREDNISONE 10 MG TABLET PO SCH (09:00)
[2016-03-21] MEDS ORDERED: PREDNISONE 20 MG TABLET PO ONE (09:00)
[2016-03-21 11:00] VITALS: BP 97/55
[2016-03-21] MEDS: MELOXICAM 7.5 MG TABLET PO SCH (11:00)
[2016-03-21] MEDS: CETIRIZINE HCL 10 MG TABLET PO SCH (11:00)
[2016-03-21] MEDS: ESCITALOPRAM 10 MG TABLET. PO SCH (11:00)
[2016-03-21] MEDS: BENZONATATE 100 MG CAPSULE. PO SCH ×3 (11:01→22:12)
[2016-03-21] MEDS: TOPIRAMATE 25 MG TABLET. PO SCH (11:02)
[2016-03-21] MEDS: FLUTICASONE 50MCG/NASAL SPRAY 16GM BOTTLE. NS SCH (11:02)
[2016-03-21] MEDS: DIAZEPAM 5 MG TABLET PO SCH ×2 (11:02→22:12)
[2016-03-21] MEDS: LISINOPRIL 10 MG TABLET PO SCH (11:02)
[2016-03-21] MEDS: IPRATRPIUM/ALBUTEROL 0.5/2.5MG 3 ML NEBU. NEB SCH ×3 (11:05→19:59)
[2016-03-21] MEDS: CEFTRIAXONE SODIUM 1 GM in IV NORMAL SALINE 50ML 50 ML IV SCH (13:37)
[2016-03-21 15:00] VITALS: BP 98/51
[2016-03-21 19:54] VITALS: BP 103/65
[2016-03-21] MEDS: ZOLPIDEM 5 MG TABLET. PO SCH (22:12)
[2016-03-21] MEDS: ATORVASTATIN CALCIUM 10 MG TABLET. PO SCH (22:13)
[2016-03-21] MEDS: CLOTRIMAZOLE 1% VAGINAL CREAM 45GM TUBE. VG SCH (22:30)
[2016-03-21 22:48] VITALS: BP 123/69
[2016-03-22] VITALS (7 sets, daily range): BP systolic 100–123; BP diastolic 64–80
[2016-03-22 06:06] LABS: BASO % 0 % (0-3); EOS % 0 % (0-3); HEMATOCRIT 40.8 % (36.0-47.0); LYMPH # 3.4 x10^3/uL (1.0-4.8); LYMPH % 19 % (24-48); MEAN CORPUSCULAR HEMOGLOBIN 32 pg (25-35); MEAN CORPUSCULAR HGB CONC 34 g/dL (31-37); MEAN CORPUSCULAR VOLUME 92 fL (79-100); MONO % 5 % (0-9); NEUT % 76 % (31-73); PLATELET COUNT 229 x10^3/uL (140-400); RED BLOOD COUNT 4.42 x10^6/uL (3.50-5.40); RED CELL DISTRIBUTION WIDTH 14.1 % (11.5-14.5); WHITE BLOOD COUNT 18.3 x10^3/uL (4.0-11.0)
[2016-03-22 06:28] LABS: CALCIUM 8.5 mg/dL (8.5-10.1); CREATININE 1.1 mg/dL (0.6-1.0); POTASSIUM 3.2 mmol/L (3.5-5.1)
[2016-03-22] MEDS: IPRATRPIUM/ALBUTEROL 0.5/2.5MG 3 ML NEBU. NEB SCH ×5 (08:09→22:00)
[2016-03-22] MEDS: ESCITALOPRAM 10 MG TABLET. PO SCH (08:57)
[2016-03-22] MEDS: FLUTICASONE 50MCG/NASAL SPRAY 16GM BOTTLE. NS SCH (08:57)
[2016-03-22] MEDS: CETIRIZINE HCL 10 MG TABLET PO SCH (08:58)
[2016-03-22] MEDS: LISINOPRIL 10 MG TABLET PO SCH (08:58)
[2016-03-22] MEDS: BENZONATATE 100 MG CAPSULE. PO SCH ×3 (08:58→21:09)
[2016-03-22] MEDS: TOPIRAMATE 25 MG TABLET. PO SCH (08:58)
[2016-03-22] MEDS: MELOXICAM 7.5 MG TABLET PO SCH (08:58)
[2016-03-22] MEDS: DIAZEPAM 5 MG TABLET PO SCH ×2 (08:59→21:08)
--- NOTE | 2016-03-22 11:53 | PDOC ---
PULMONARY PROGRESS NOTES Subjective PT WITH INCREASE SOA EARLIER Vitals Vital Signs Date Time Temp Pulse Resp B/P Pulse Ox O2 Delivery O2 Flow Rate FiO2 03/22/16 11:45 Nasal Cannula 2.0 03/22/16 08:58 84 112/71 03/22/16 08:11 92 03/22/16 07:00 98.0 24 98.0 ROS: No Nausea, No Chest Pain, No Abdominal Pain, No Increase Cough General: Alert Lungs: Wheezing Cardiovascular: S1, S2 Abdomen: Soft, Non-tender Neuro Exam: Alert Extremities: No Edema Skin: Warm Labs Laboratory Tests Test 03/20/16 15:10 03/21/16 06:05 03/22/16 05:55 Lactic Acid Level 3.0mmol/L (0.4-2.0) White Blood Count 21.0x10^3/uL (4.0-11.0) 18.3x10^3/uL (4.0-11.0) Red Blood Count 4.79x10^6/uL (3.50-5.40) 4.42x10^6/uL (3.50-5.40) Hemoglobin 15.1g/dL (12.0-15.5) 14.0g/dL (12.0-15.5) Hematocrit 43.4% (36.0-47.0) 40.8% (36.0-47.0) Mean Corpuscular Volume 91fL (79-100) 92fL (79-100) Mean Corpuscular Hemoglobin 32pg (25-35) 32pg (25-35) Mean Corpuscular Hemoglobin Concent 35g/dL (31-37) 34g/dL (31-37) Red Cell Distribution Width 14.2% (11.5-14.5) 14.1% (11.5-14.5) Platelet Count 267x10^3/uL (140-400) 229x10^3/uL (140-400) Neutrophils (%) (Auto) 93% (31-73) 76% (31-73) Lymphocytes (%) (Auto) 5% (24-48) 19% (24-48) Monocytes (%) (Auto) 2% (0-9) 5% (0-9) Eosinophils (%) (Auto) 0% (0-3) 0% (0-3) Basophils (%) (Auto) 0% (0-3) 0% (0-3) Neutrophils # (Auto) 19.5x10^3uL (1.8-7.7) 13.8x10^3uL (1.8-7.7) Lymphocytes # (Auto) 1.1x10^3/uL (1.0-4.8) 3.4x10^3/uL (1.0-4.8) Monocytes # (Auto) 0.4x10^3/uL (0.0-1.1) 0.9x10^3/uL (0.0-1.1) Eosinophils # (Auto) 0.0x10^3/uL (0.0-0.7) 0.0x10^3/uL (0.0-0.7) Basophils # (Auto) 0.0x10^3/uL (0.0-0.2) 0.0x10^3/uL (0.0-0.2) Sodium Level 144mmol/L (136-145) 141mmol/L (136-145) Potassium Level 3.9mmol/L (3.5-5.1) 3.2mmol/L (3.5-5.1) Chloride Level 107mmol/L (98-107) 105mmol/L (98-107) Carbon Dioxide Level 24mmol/L (21-32) 26mmol/L (21-32) Anion Gap 13 (6-14) 10 (6-14) Blood Urea Nitrogen 19mg/dL (7-20) 24mg/dL (7-20) Creatinine 1.2mg/dL (0.6-1.0) 1.1mg/dL (0.6-1.0) Estimated GFR (Cockcroft-Gault) 49.8 55.0 Glucose Level 137mg/dL (70-99) 97mg/dL (70-99) Calcium Level 9.1mg/dL (8.5-10.1) 8.5mg/dL (8.5-10.1) Laboratory Tests Test 03/22/16 05:55 White Blood Count 18.3x10^3/uL (4.0-11.0) Red Blood Count 4.42x10^6/uL (3.50-5.40) Hemoglobin 14.0g/dL (12.0-15.5) Hematocrit 40.8% (36.0-47.0) Mean Corpuscular Volume 92fL (79-100) Mean Corpuscular Hemoglobin 32pg (25-35) Mean Corpuscular Hemoglobin Concent 34g/dL (31-37) Red Cell Distribution Width 14.1% (11.5-14.5) Platelet Count 229x10^3/uL (140-400) Neutrophils (%) (Auto) 76% (31-73) Lymphocytes (%) (Auto) 19% (24-48) Monocytes (%) (Auto) 5% (0-9) Eosinophils (%) (Auto) 0% (0-3) Basophils (%) (Auto) 0% (0-3) Neutrophils # (Auto) 13.8x10^3uL (1.8-7.7) Lymphocytes # (Auto) 3.4x10^3/uL (1.0-4.8) Monocytes # (Auto) 0.9x10^3/uL (0.0-1.1) Eosinophils # (Auto) 0.0x10^3/uL (0.0-0.7) Basophils # (Auto) 0.0x10^3/uL (0.0-0.2) Sodium Level 141mmol/L (136-145) Potassium Level 3.2mmol/L (3.5-5.1) Chloride Level 105mmol/L (98-107) Carbon Dioxide Level 26mmol/L (21-32) Anion Gap 10 (6-14) Blood Urea Nitrogen 24mg/dL (7-20) Creatinine 1.1mg/dL (0.6-1.0) Estimated GFR (Cockcroft-Gault) 55.0 Glucose Level 97mg/dL (70-99) Calcium Level 8.5mg/dL (8.5-10.1) Medications Active Scripts Medications Dose Route/Sig Days Date Category Zithromax (Azithromycin) 250 Mg Tablet 250 Mg PO DAILY 02/02/16 Rx Prometh-Codein 6.25-10 mg/5 ml (Promethazine HCl/Codeine) 5 Ml Syrup 5 Ml PO Q6-8HRS PRN 12/28/16 Rx Proair Respiclick (Albuterol Sulfate) 90 Mcg Aer.pow.ba 1 Puff IH PRN Q6HRS PRN 02/02/16 Rx Prednisone 50 Mg Tablet 1 Tab PO DAILY 02/02/16 Rx Benzonatate 200 Mg Capsule 1 Cap PO TID 01/17/16 Rx Prednisone 20 Mg Tablet 40 Mg PO DAILY 5 01/17/16 Rx Cyclobenzaprine Hcl 10 Mg Tablet 1 Tab PO TID 11/08/15 Rx Hydrocodone-Apap 7.5-325/15 Soln (Hydrocodone Bit/Acetaminophen) 15 Ml Solution 15 Ml PO PRN Q6HRS PRN 11/08/15 Rx Cipro (Ciprofloxacin Hcl) 500 Mg Tablet 1 Tab PO BID 11/08/15 Rx Flonase Allergy Relief (Fluticasone Propionate) 9.9 Ml [place].susp 2 Sprays NS DAILY 09/27/15 Rx Prednisone 50 Mg Tablet 1 Tab PO DAILY 09/27/15 Rx [place] 5-325 Tablet (Acetaminophen/Hydrocodone Bitart) 1 Each Tablet 1 Tab PO PRN Q6HRS PRN 09/27/15 Rx Augmentin 875-125 Tablet (Amoxicillin/Potassium Clav) 1 Each Tablet 1 Tab PO BID 09/27/15 Rx [place] 5-325 Tablet (Acetaminophen/Hydrocodone Bitart) 1 Each Tablet 1 Tab PO PRN Q6HRS PRN 06/29/15 Rx Cyclobenzaprine Hcl 10 Mg Tablet 10 Mg PO TID 06/29/15 Rx Ambien (Zolpidem Tartrate) 5 Mg Tablet 1 Tab PO QHS 08/03/14 Reported Lexapro (Escitalopram Oxalate) 20 Mg Tablet 1 Tab PO DAILY 08/03/14 Reported Meloxicam 15 Mg Tablet 1 Tab PO DAILY 08/03/14 Reported Claritin (Loratadine) 10 Mg Tablet 1 Tab PO DAILY 09/16/13 Reported Gabapentin 300 Mg Capsule 1 Cap PO TID 09/16/13 Reported Morphine Sulfate Er (Morphine Sulfate) 15 Mg Tablet.er 15 Mg PO BID 05/29/13 Reported Valium (Diazepam) 5 Mg Tablet 5 Mg PO 03/13/13 Reported Cyclobenzaprine Hcl 5 Mg Tablet 5 Mg PO 03/13/13 Reported Lisinopril 10 Mg Tablet 10 Mg PO 2/6/14 Reported Lipitor (Atorvastatin Calcium) 10 Mg Tablet 10 Mg PO 03/13/13 Reported Topamax (Topiramate) 25 Mg Tablet 25 Mg PO 03/13/13 Reported Oxycodon-Acetaminophen 2.5-325 (Oxycodone Hcl/Acetaminophen) 1 Each Tablet 1 Each PO 03/13/13 Reported Impression . 1. Acute exacerbation of chronic obstructive pulmonary disease. 2. Acute nonspecific bronchitis. 3. History of tobacco dependence. 4. GERD Plan . NEEDS TO AVOID CAFFEINE WT REDUCTION OK TO D/C ON TAPER STEROIDS AND DOXY NOTHING TO ADD ADIN JUDD MD Mar 22, 2016 11:53
[2016-03-22] MEDS: CEFTRIAXONE SODIUM 1 GM in IV NORMAL SALINE 50ML 50 ML IV SCH (12:41)
--- NOTE | 2016-03-22 13:43 | PDOC ---
PROGRESS NOTES Chief Complaint Chief Complaint Acute hypoxic respiratory distress ASSESSMENT AND PLAN: 1. Asthma exacerbation: on steroids - IV 125 solumedrol X1 now, switch to PO ; nebs, suppl O2. also ceftriax. 2. HTN: well controlled on home meds 3. HLD: on statin 4. OA, fibromyalgia: continue PO home meds 5. Migraines: on topamax 6. Dispo: anticipate home in AM History of Present Illness History of Present Illness wheezing, dyspneic some difficulty ambulating using 02, will need 6 min walk Vitals Vitals Vital Signs Date Time Temp Pulse Resp B/P Pulse Ox O2 Delivery O2 Flow Rate FiO2 03/22/16 11:45 Nasal Cannula 2.0 03/22/16 08:58 84 112/71 03/22/16 08:11 92 03/22/16 07:00 98.0 24 98.0 Physical Exam General: Alert, Oriented X3, Cooperative, mild distress Heart: Regular rate Lungs: Wheezing, Other (poor vol. cough with deep inspiration, chest pain on cough, ) Abdomen: Normal bowel sounds, No tenderness Extremities: No clubbing, No edema Skin: No rashes Labs LABS Laboratory Tests Test 03/22/16 05:55 White Blood Count 18.3x10^3/uL (4.0-11.0) Red Blood Count 4.42x10^6/uL (3.50-5.40) Hemoglobin 14.0g/dL (12.0-15.5) Hematocrit 40.8% (36.0-47.0) Mean Corpuscular Volume 92fL (79-100) Mean Corpuscular Hemoglobin 32pg (25-35) Mean Corpuscular Hemoglobin Concent 34g/dL (31-37) Red Cell Distribution Width 14.1% (11.5-14.5) Platelet Count 229x10^3/uL (140-400) Neutrophils (%) (Auto) 76% (31-73) Lymphocytes (%) (Auto) 19% (24-48) Monocytes (%) (Auto) 5% (0-9) Eosinophils (%) (Auto) 0% (0-3) Basophils (%) (Auto) 0% (0-3) Neutrophils # (Auto) 13.8x10^3uL (1.8-7.7) Lymphocytes # (Auto) 3.4x10^3/uL (1.0-4.8) Monocytes # (Auto) 0.9x10^3/uL (0.0-1.1) Eosinophils # (Auto) 0.0x10^3/uL (0.0-0.7) Basophils # (Auto) 0.0x10^3/uL (0.0-0.2) Sodium Level 141mmol/L (136-145) Potassium Level 3.2mmol/L (3.5-5.1) Chloride Level 105mmol/L (98-107) Carbon Dioxide Level 26mmol/L (21-32) Anion Gap 10 (6-14) Blood Urea Nitrogen 24mg/dL (7-20) Creatinine 1.1mg/dL (0.6-1.0) Estimated GFR (Cockcroft-Gault) 55.0 Glucose Level 97mg/dL (70-99) Calcium Level 8.5mg/dL (8.5-10.1) Review of Systems Review of Systems cough, wheeze, chest pain gen myalgia, does not feel improved Assessment and Plan Assessmemt and Plan Problems Medical Problems: (1) Asthma exacerbation Status: Acute Problems: Comment Review of Relevant I have reviewed the following items asher (where applicable) has been applied. Labs Laboratory Tests Test 03/20/16 15:10 03/21/16 06:05 03/22/16 05:55 Lactic Acid Level 3.0mmol/L (0.4-2.0) White Blood Count 21.0x10^3/uL (4.0-11.0) 18.3x10^3/uL (4.0-11.0) Red Blood Count 4.79x10^6/uL (3.50-5.40) 4.42x10^6/uL (3.50-5.40) Hemoglobin 15.1g/dL (12.0-15.5) 14.0g/dL (12.0-15.5) Hematocrit 43.4% (36.0-47.0) 40.8% (36.0-47.0) Mean Corpuscular Volume 91fL (79-100) 92fL (79-100) Mean Corpuscular Hemoglobin 32pg (25-35) 32pg (25-35) Mean Corpuscular Hemoglobin Concent 35g/dL (31-37) 34g/dL (31-37) Red Cell Distribution Width 14.2% (11.5-14.5) 14.1% (11.5-14.5) Platelet Count 267x10^3/uL (140-400) 229x10^3/uL (140-400) Neutrophils (%) (Auto) 93% (31-73) 76% (31-73) Lymphocytes (%) (Auto) 5% (24-48) 19% (24-48) Monocytes (%) (Auto) 2% (0-9) 5% (0-9) Eosinophils (%) (Auto) 0% (0-3) 0% (0-3) Basophils (%) (Auto) 0% (0-3) 0% (0-3) Neutrophils # (Auto) 19.5x10^3uL (1.8-7.7) 13.8x10^3uL (1.8-7.7) Lymphocytes # (Auto) 1.1x10^3/uL (1.0-4.8) 3.4x10^3/uL (1.0-4.8) Monocytes # (Auto) 0.4x10^3/uL (0.0-1.1) 0.9x10^3/uL (0.0-1.1) Eosinophils # (Auto) 0.0x10^3/uL (0.0-0.7) 0.0x10^3/uL (0.0-0.7) Basophils # (Auto) 0.0x10^3/uL (0.0-0.2) 0.0x10^3/uL (0.0-0.2) Sodium Level 144mmol/L (136-145) 141mmol/L (136-145) Potassium Level 3.9mmol/L (3.5-5.1) 3.2mmol/L (3.5-5.1) Chloride Level 107mmol/L (98-107) 105mmol/L (98-107) Carbon Dioxide Level 24mmol/L (21-32) 26mmol/L (21-32) Anion Gap 13 (6-14) 10 (6-14) Blood Urea Nitrogen 19mg/dL (7-20) 24mg/dL (7-20) Creatinine 1.2mg/dL (0.6-1.0) 1.1mg/dL (0.6-1.0) Estimated GFR (Cockcroft-Gault) 49.8 55.0 Glucose Level 137mg/dL (70-99) 97mg/dL (70-99) Calcium Level 9.1mg/dL (8.5-10.1) 8.5mg/dL (8.5-10.1) Laboratory Tests Test 03/22/16 05:55 White Blood Count 18.3x10^3/uL (4.0-11.0) Red Blood Count 4.42x10^6/uL (3.50-5.40) Hemoglobin 14.0g/dL (12.0-15.5) Hematocrit 40.8% (36.0-47.0) Mean Corpuscular Volume 92fL (79-100) Mean Corpuscular Hemoglobin 32pg (25-35) Mean Corpuscular Hemoglobin Concent 34g/dL (31-37) Red Cell Distribution Width 14.1% (11.5-14.5) Platelet Count 229x10^3/uL (140-400) Neutrophils (%) (Auto) 76% (31-73) Lymphocytes (%) (Auto) 19% (24-48) Monocytes (%) (Auto) 5% (0-9) Eosinophils (%) (Auto) 0% (0-3) Basophils (%) (Auto) 0% (0-3) Neutrophils # (Auto) 13.8x10^3uL (1.8-7.7) Lymphocytes # (Auto) 3.4x10^3/uL (1.0-4.8) Monocytes # (Auto) 0.9x10^3/uL (0.0-1.1) Eosinophils # (Auto) 0.0x10^3/uL (0.0-0.7) Basophils # (Auto) 0.0x10^3/uL (0.0-0.2) Sodium Level 141mmol/L (136-145) Potassium Level 3.2mmol/L (3.5-5.1) Chloride Level 105mmol/L (98-107) Carbon Dioxide Level 26mmol/L (21-32) Anion Gap 10 (6-14) Blood Urea Nitrogen 24mg/dL (7-20) Creatinine 1.1mg/dL (0.6-1.0) Estimated GFR (Cockcroft-Gault) 55.0 Glucose Level 97mg/dL (70-99) Calcium Level 8.5mg/dL (8.5-10.1) Microbiology 03/20/16 Blood Culture - Preliminary, Resulted NO GROWTH AFTER 1 DAY Medications Current Medications Albuterol/ Ipratropium (Duoneb) 3 ml 1X ONCE NEB Last administered on 21:04; Start 03/19/16 at 21:00; Stop 03/19/16 at 21:03; Status DC Albuterol/ Ipratropium (Duoneb) 3 ml 1X ONCE NEB Last administered on 21:22; Start 03/19/16 at 21:30; Stop 03/19/16 at 21:31; Status DC Methylprednisolone Sodium Succinate (Solu-Medrol 125mg Vial) 125 mg 1X ONCE IV Last administered on 03/19/16 21:30; Start 03/19/16 at 21:30; Stop 03/19/16 at 21:31; Status DC Potassium Chloride (Klor-Con) 60 meq 1X ONCE PO Last administered on 22:10; Start 03/19/16 at 22:00; Stop 03/19/16 at 22:01; Status DC Albuterol Sulfate 10 mg 10 mg 1X ONCE CONT NEB Last administered on 03/19/16 23:29; Start 03/19/16 at 22:00; Stop 03/19/16 at 22:01; Status DC Magnesium Sulfate/ Dextrose (Magnesium Sulfate PREMIX 1GM) 100 ml @ 100 mls/hr 1X ONCE IV Last administered on 03/19/16 22:10; Start 03/19/16 at 22:15; Stop 03/19/16 at 23:14; Status DC Ondansetron HCl (Zofran) 4 mg PRN Q8HRS PRN IV NAUSEA/VOMITING; Start 03/20/16 at 01:00; Stop 03/21/16 at 00:59; Status DC Nitroglycerin (Nitrostat) 0.4 mg PRN Q5MIN PRN SL CHEST PAIN; Start 03/20/16 at 01:00; Stop 03/21/16 at 00:59; Status DC Albuterol/ Ipratropium (Duoneb) 3 ml RTQID NEB Last administered on 03/20/16 19:49; Start 03/20/16 at 08:00; Stop 03/21/16 at 07:59; Status DC Acetaminophen (Tylenol) 650 mg 1X ONCE PO Last administered on 03/20/16 10:01 ; Start 03/20/16 at 10:15; Stop 03/20/16 at 10:16; Status DC Amoxicillin/ Clavulanate Potassium (Augmentin 875/ 125mg) 1 tab BID PO ; Start 03/20/16 at 21:00; Status UNV Atorvastatin Calcium (Lipitor) 10 mg QHS PO Last administered on 03/21/16 22: 13; Start 03/20/16 at 21:00 Azithromycin (Zithromax) 250 mg DAILY PO ; Start 03/20/16 at 12:00; Status Cancel Cyclobenzaprine HCl (Flexeril) 10 mg TID PO ; Start 03/20/16 at 14:00; Stop at 14:00; Status DC Cyclobenzaprine HCl (Flexeril) 10 mg TID PO ; Start 03/20/16 at 14:00; Stop at 14:00; Status DC Diazepam (Valium) 5 mg BID PO Last administered on 03/22/16 08:59; Start 03/20 at 12:00 Gabapentin (Neurontin) 300 mg TID PO ; Start 03/20/16 at 14:00; Status Cancel Acetaminophen/ Hydrocodone Bitart (Lortab 7.5-325/ 15ml Oral Solution) 15 ml PRN Q6HRS PRN PO PAIN; Start 03/20/16 at 11:30 Acetaminophen/ Hydrocodone Bitart (Lortab 5/325) 1 tab PRN Q6HRS PRN PO PAIN; Start 03/20/16 at 11:30 Acetaminophen/ Hydrocodone Bitart (Lortab 5/325) 1 tab PRN Q6HRS PRN PO PAIN; Start 03/20/16 at 11:30; Status UNV Lisinopril (Prinivil) 10 mg DAILY PO Last administered on 03/22/16 08:58; Start 03/20/16 at 12:00 Morphine Sulfate (Ms Contin) 15 mg BID PO ; Start 03/20/16 at 12:00; Status Cancel Prednisone (Prednisone) 40 mg DAILY PO ; Start 03/20/16 at 12:00; Status Cancel Topiramate (Topamax) 25 mg DAILY PO Last administered on 03/22/16 08:58; Start 03/20/16 at 12:00 Zolpidem Tartrate (Ambien) 5 mg QHS PO Last administered on 03/21/16 22:12; Start 03/20/16 at 21:00 Non-Formulary Medication 1 puff PRN Q6HRS PRN IH SHORTNESS OF BREATH; Start at 11:30; Stop 03/20/16 at 12:04; Status DC Benzonatate (Tessalon Perle) 200 mg [id number] PO ; Start 03/20/16 at 14:00; Status Cancel Non-Formulary Medication 1 tab BID PO ; Start 03/20/16 at 21:00; Status UNV Escitalopram Oxalate (Lexapro) 20 mg DAILY PO Last administered on 03/22/16 08 :57; Start 03/20/16 at 12:00 Fluticasone Propionate (Flonase) 2 spray DAILY NS ; Start 03/20/16 at 12:00; Stop 03/20/16 at 12:39; Status DC Cetirizine HCl (Zyrtec) 10 mg DAILY PO Last administered on 03/22/16 08:58; Start 03/20/16 at 12:00 Meloxicam (Mobic) 15 mg DAILY PO Last administered on 03/22/16 08:58; Start at 12:00 Non-Formulary Medication 1 tab DAILY PO ; Start 03/21/16 at 09:00; Stop at 09:00; Status DC Prednisone (Prednisone) 50 mg DAILY PO ; Start 03/21/16 at 09:00; Status Cancel Promethazine HCl/ Codeine 5 ml 5 ml PRN Q6HRS PRN PO COUGH Last administered on 03/21/16 06:48; Start 03/20/16 at 12:30 Ceftriaxone Sodium/Sodium Chloride (Rocephin/Iv Sodium Chloride 0.9% 50ml) 50 ml @ 100 mls/hr Q24H IV Last administered on 03/22/16 12:41; Start 03/20/16 at 12:00 Fluticasone Propionate (Flonase) 2 spray DAILY NS Last administered on 08:57; Start 03/21/16 at 09:00 Acetaminophen (Tylenol) 650 mg PRN Q6HRS PRN PEG MILD PAIN / TEMP Last administered on 03/21/16 17:01; Start 03/20/16 at 17:15 Methylprednisolone Sodium Succinate (Solu-Medrol 125mg Vial) 60 mg BID IV Last administered on 03/20/16 21:41; Start 03/20/16 at 20:00; Stop 03/21/16 at 08:40 ; Status DC Benzonatate (Tessalon Perle) 100 mg [id number] PO Last administered on 03/22/16 12 :42; Start 03/20/16 at 21:00 Prednisone (Prednisone) 60 mg 1X ONCE PO Last administered on 03/21/16 11:17 ; Start 03/21/16 at 09:00; Stop 03/21/16 at 09:01; Status DC Albuterol/ Ipratropium (Duoneb) 3 ml RTQID NEB Last administered on 03/22/16 11:44; Start 03/21/16 at 12:00 Albuterol Sulfate (Ventolin Neb Soln) 2.5 mg PRN Q4HRS PRN NEB SHORTNESS OF BREATH; Start 03/21/16 at 08:45 Clotrimazole (Mycelex-7) 1 shayne QHS VG Last administered on 03/21/16 22:30; Start 03/21/16 at 22:30; Stop 03/28/16 at 22:29 Active Scripts Active Zithromax (Azithromycin) 250 Mg Tablet 250 Mg PO DAILY Prometh-Codein 6.25-10 mg/5 ml (Promethazine HCl/Codeine) 5 Ml Syrup 5 Ml PO Q6- 8HRS PRN Proair Respiclick (Albuterol Sulfate) 90 Mcg Aer.pow.ba 1 Puff IH PRN Q6HRS PRN Prednisone 50 Mg Tablet 1 Tab PO DAILY Benzonatate 200 Mg Capsule 1 Cap PO TID Prednisone 20 Mg Tablet 40 Mg PO DAILY 5 Days Cyclobenzaprine Hcl 10 Mg Tablet 1 Tab PO TID Hydrocodone-Apap 7.5-325/15 Soln (Hydrocodone Bit/Acetaminophen) 15 Ml Solution 15 Ml PO PRN Q6HRS PRN Cipro (Ciprofloxacin Hcl) 500 Mg Tablet 1 Tab PO BID Flonase Allergy Relief (Fluticasone Propionate) 9.9 Ml [place].susp 2 Sprays NS DAILY Prednisone 50 Mg Tablet 1 Tab PO DAILY [place] 5-325 Tablet (Acetaminophen/Hydrocodone Bitart) 1 Each Tablet 1 Tab PO PRN Q6HRS PRN Augmentin 875-125 Tablet (Amoxicillin/Potassium Clav) 1 Each Tablet 1 Tab PO BID [place] 5-325 Tablet (Acetaminophen/Hydrocodone Bitart) 1 Each Tablet 1 Tab PO PRN Q6HRS PRN Cyclobenzaprine Hcl 10 Mg Tablet 10 Mg PO TID Reported Ambien (Zolpidem Tartrate) 5 Mg Tablet 1 Tab PO QHS Lexapro (Escitalopram Oxalate) 20 Mg Tablet 1 Tab PO DAILY Meloxicam 15 Mg Tablet 1 Tab PO DAILY Claritin (Loratadine) 10 Mg Tablet 1 Tab PO DAILY Gabapentin 300 Mg Capsule 1 Cap PO TID Morphine Sulfate Er (Morphine Sulfate) 15 Mg Tablet.er 15 Mg PO BID Valium (Diazepam) 5 Mg Tablet 5 Mg PO Cyclobenzaprine Hcl 5 Mg Tablet 5 Mg PO Lisinopril 10 Mg Tablet 10 Mg PO Lipitor (Atorvastatin Calcium) 10 Mg Tablet 10 Mg PO Topamax (Topiramate) 25 Mg Tablet 25 Mg PO Oxycodon-Acetaminophen 2.5-325 (Oxycodone Hcl/Acetaminophen) 1 Each Tablet 1 Each PO Vitals/I & O Vital Sign - Last 24 Hours 03/21/16 03/21/16 03/21/16 03/21/16 15:00 15:09 19:54 19:59 Temp 98.0 97.7 98.0 97.7 Pulse 89 93 Resp 20 20 B/P 98/51 103/65 Pulse Ox 90 92 95 92 O2 Delivery Nasal Cannula Nasal Cannula Nasal Cannula Nasal Cannula O2 Flow Rate 2.0 2.0 2.5 2.0 03/21/16 03/21/16 03/22/16 03/22/16 20:00 22:48 03:59 07:00 Temp 98.2 97.7 98.0 98.2 97.7 98.0 Pulse 64 67 84 Resp 20 20 24 B/P 123/69 103/74 112/71 Pulse Ox 92 93 96 O2 Delivery Nasal Cannula Nasal Cannula Nasal Cannula Room Air O2 Flow Rate 2.0 2.0 2.5 03/22/16 03/22/16 03/22/16 03/22/16 08:11 08:20 08:58 11:45 Pulse 84 B/P 112/71 Pulse Ox 92 O2 Delivery Nasal Cannula Nasal Cannula Nasal Cannula O2 Flow Rate 2.0 2.0 2.0 Intake and Output 03/21/16 03/21/16 03/22/16 15:00 23:00 07:00 Intake Total 50 ml 240 ml Balance 50 ml 240 ml JOSHUA GUALLPA MD Mar 22, 2016 13:43
[2016-03-22] MEDS ORDERED: POTASSIUM CHLORIDE 20 MEQ TABLET.ER. PO ONE (13:45)
[2016-03-22] MEDS ORDERED: MAGNESIUM SULFATE 2GM 50 ML IV ONE (13:45)
[2016-03-22] MEDS ORDERED: methylPREDNISolone SOD SUCC PF 125 MG/2 ML VIAL. IV ONE (13:45)
[2016-03-22] MEDS ORDERED: TRAMADOL 50 MG TABLET. PO PRN (13:45)
[2016-03-22] MEDS ORDERED: HYDROCODONE/CHLORPHEN POLIS 5 ML SUS.ER.12H. PO PRN ×2 (13:45→13:51)
--- NOTE | 2016-03-22 14:54 | RAD ---
INDICATION: dyspnea, cough, hypoxia COMPARISON: 03/19/2016 FINDINGS: 2 views of chest obtained. No focal airspace consolidation. Mediastinal contour is unremarkable. No gross osseous destructive lesion. Degenerative spurring thoracic spine. IMPRESSION: No focal airspace consolidation or edema.
[2016-03-22] MEDS ORDERED: POLYETHYLENE GLYCOL 3350 17 GM PACKET. PO PRN (15:30)
[2016-03-22] MEDS: BUDESONIDE 0.5 MG/2 ML NEBU NEB SCH (19:58)
[2016-03-22] MEDS: CLOTRIMAZOLE 1% VAGINAL CREAM 45GM TUBE. VG SCH (21:08)
[2016-03-22] MEDS: ATORVASTATIN CALCIUM 10 MG TABLET. PO SCH (21:08)
[2016-03-22] MEDS: ZOLPIDEM 5 MG TABLET. PO SCH (21:09)
[2016-03-23 03:26] VITALS: BP 107/77
[2016-03-23 07:00] VITALS: BP 110/59
[2016-03-23] MEDS: BUDESONIDE 0.5 MG/2 ML NEBU NEB SCH (07:27)
[2016-03-23] MEDS: IPRATRPIUM/ALBUTEROL 0.5/2.5MG 3 ML NEBU. NEB SCH ×2 (07:27→11:27)
[2016-03-23] MEDS ORDERED: PREDNISONE 20 MG TABLET PO SCH (08:00)
[2016-03-23] MEDS: CETIRIZINE HCL 10 MG TABLET PO SCH (08:55)
[2016-03-23] MEDS: ESCITALOPRAM 10 MG TABLET. PO SCH (08:56)
[2016-03-23] MEDS: BENZONATATE 100 MG CAPSULE. PO SCH (08:57)
[2016-03-23] MEDS: MELOXICAM 7.5 MG TABLET PO SCH (08:57)
[2016-03-23] MEDS: DIAZEPAM 5 MG TABLET PO SCH (08:57)
[2016-03-23] MEDS: TOPIRAMATE 25 MG TABLET. PO SCH (08:57)
[2016-03-23] MEDS: LISINOPRIL 10 MG TABLET PO SCH (08:58)
[2016-03-23] MEDS: FLUTICASONE 50MCG/NASAL SPRAY 16GM BOTTLE. NS SCH (08:59)
[2016-03-23] MEDS ORDERED: POLYETHYLENE GLYCOL 3350 17 GM PACKET. PO SCH (09:00)
--- NOTE | 2016-03-23 09:44 | PDOC ---
PULMONARY PROGRESS NOTES Subjective PT WITH INCREASE SOA EARLIER Vitals Vital Signs Date Time Temp Pulse Resp B/P Pulse Ox O2 Delivery O2 Flow Rate FiO2 03/23/16 08:58 77 110/59 03/23/16 07:22 94 Nasal Cannula 2.0 03/23/16 07:00 97.7 18 97.7 ROS: No Nausea, No Chest Pain, No Abdominal Pain, No Increase Cough General: Alert Lungs: Wheezing, Other (poor vol. cough with deep inspiration, chest pain on cough, ) Cardiovascular: S1, S2 Abdomen: Soft, Non-tender Neuro Exam: Alert Extremities: No Edema Skin: Warm Labs Laboratory Tests Test 03/22/16 05:55 White Blood Count 18.3x10^3/uL (4.0-11.0) Red Blood Count 4.42x10^6/uL (3.50-5.40) Hemoglobin 14.0g/dL (12.0-15.5) Hematocrit 40.8% (36.0-47.0) Mean Corpuscular Volume 92fL (79-100) Mean Corpuscular Hemoglobin 32pg (25-35) Mean Corpuscular Hemoglobin Concent 34g/dL (31-37) Red Cell Distribution Width 14.1% (11.5-14.5) Platelet Count 229x10^3/uL (140-400) Neutrophils (%) (Auto) 76% (31-73) Lymphocytes (%) (Auto) 19% (24-48) Monocytes (%) (Auto) 5% (0-9) Eosinophils (%) (Auto) 0% (0-3) Basophils (%) (Auto) 0% (0-3) Neutrophils # (Auto) 13.8x10^3uL (1.8-7.7) Lymphocytes # (Auto) 3.4x10^3/uL (1.0-4.8) Monocytes # (Auto) 0.9x10^3/uL (0.0-1.1) Eosinophils # (Auto) 0.0x10^3/uL (0.0-0.7) Basophils # (Auto) 0.0x10^3/uL (0.0-0.2) Sodium Level 141mmol/L (136-145) Potassium Level 3.2mmol/L (3.5-5.1) Chloride Level 105mmol/L (98-107) Carbon Dioxide Level 26mmol/L (21-32) Anion Gap 10 (6-14) Blood Urea Nitrogen 24mg/dL (7-20) Creatinine 1.1mg/dL (0.6-1.0) Estimated GFR (Cockcroft-Gault) 55.0 Glucose Level 97mg/dL (70-99) Calcium Level 8.5mg/dL (8.5-10.1) Medications Active Scripts Medications Dose Route/Sig Days Date Category Zithromax (Azithromycin) 250 Mg Tablet 250 Mg PO DAILY 02/02/16 Rx Prometh-Codein 6.25-10 mg/5 ml (Promethazine HCl/Codeine) 5 Ml Syrup 5 Ml PO Q6-8HRS PRN 02/02/16 Rx Proair Respiclick (Albuterol Sulfate) 90 Mcg Aer.pow.ba 1 Puff IH PRN Q6HRS PRN 02/02/16 Rx Prednisone 50 Mg Tablet 1 Tab PO DAILY 02/02/16 Rx Benzonatate 200 Mg Capsule 1 Cap PO TID 01/17/16 Rx Prednisone 20 Mg Tablet 40 Mg PO DAILY 5 01/17/16 Rx Cyclobenzaprine Hcl 10 Mg Tablet 1 Tab PO TID 11/08/15 Rx Hydrocodone-Apap 7.5-325/15 Soln (Hydrocodone Bit/Acetaminophen) 15 Ml Solution 15 Ml PO PRN Q6HRS PRN 11/08/15 Rx Cipro (Ciprofloxacin Hcl) 500 Mg Tablet 1 Tab PO BID 11/08/15 Rx Flonase Allergy Relief (Fluticasone Propionate) 9.9 Ml [place].susp 2 Sprays NS DAILY 09/27/15 Rx Prednisone 50 Mg Tablet 1 Tab PO DAILY 09/27/15 Rx [place] 5-325 Tablet (Acetaminophen/Hydrocodone Bitart) 1 Each Tablet 1 Tab PO PRN Q6HRS PRN 09/27/15 Rx Augmentin 875-125 Tablet (Amoxicillin/Potassium Clav) 1 Each Tablet 1 Tab PO BID 09/27/15 Rx [place] 5-325 Tablet (Acetaminophen/Hydrocodone Bitart) 1 Each Tablet 1 Tab PO PRN Q6HRS PRN 06/29/15 Rx Cyclobenzaprine Hcl 10 Mg Tablet 10 Mg PO TID 06/29/15 Rx Ambien (Zolpidem Tartrate) 5 Mg Tablet 1 Tab PO QHS 08/03/14 Reported Lexapro (Escitalopram Oxalate) 20 Mg Tablet 1 Tab PO DAILY 08/03/14 Reported Meloxicam 15 Mg Tablet 1 Tab PO DAILY 08/03/14 Reported Claritin (Loratadine) 10 Mg Tablet 1 Tab PO DAILY 09/16/13 Reported Gabapentin 300 Mg Capsule 1 Cap PO TID 09/16/13 Reported Morphine Sulfate Er (Morphine Sulfate) 15 Mg Tablet.er 15 Mg PO BID 05/29/13 Reported Valium (Diazepam) 5 Mg Tablet 5 Mg PO 03/13/13 Reported Cyclobenzaprine Hcl 5 Mg Tablet 5 Mg PO 03/13/13 Reported Lisinopril 10 Mg Tablet 10 Mg PO 03/13/13 Reported Lipitor (Atorvastatin Calcium) 10 Mg Tablet 10 Mg PO 03/13/13 Reported Topamax (Topiramate) 25 Mg Tablet 25 Mg PO 03/13/13 Reported Oxycodon-Acetaminophen 2.5-325 (Oxycodone Hcl/Acetaminophen) 1 Each Tablet 1 Each PO 03/13/13 Reported Impression . 1. Acute exacerbation of chronic obstructive pulmonary disease. 2. Acute nonspecific bronchitis. 3. History of tobacco dependence. 4. GERD Plan . NEEDS TO AVOID CAFFEINE WT REDUCTION OK TO D/C ON TAPER STEROIDS AND DOXY NOTHING TO ADD ADIN JUDD MD Mar 23, 2016 09:43
[2016-03-23 11:03] VITALS: BP 113/60
[2016-03-23] MEDS ORDERED: DOXY100C2 PO (12:02)
--- NOTE | 2016-03-23 12:04 | PDOC3 ---
Discharge Summary Visit Information Date of Admission: Mar 20, 2016 Date of Discharge: Mar 23, 2016 Admitting Diagnosis Comment: Asthma exacerbation SMoker Final Diagnosis Problems Medical Problems: (1) Asthma exacerbation Status: Acute Brief Hospital Course Allergies Allergies Coded Allergies Type Severity Reaction Last Updated Verified No Known Drug Allergies 08/03/14 No Vital Signs Vital Signs Date Time Temp Pulse Resp B/P Pulse Ox O2 Delivery O2 Flow Rate FiO2 03/23/16 11:28 93 Nasal Cannula 2.0 03/23/16 11:03 97.7 78 113/60 97.7 03/23/16 07:00 18 Lab Results Laboratory Tests Test 03/22/16 05:55 White Blood Count 18.3x10^3/uL (4.0-11.0) Red Blood Count 4.42x10^6/uL (3.50-5.40) Hemoglobin 14.0g/dL (12.0-15.5) Hematocrit 40.8% (36.0-47.0) Mean Corpuscular Volume 92fL (79-100) Mean Corpuscular Hemoglobin 32pg (25-35) Mean Corpuscular Hemoglobin Concent 34g/dL (31-37) Red Cell Distribution Width 14.1% (11.5-14.5) Platelet Count 229x10^3/uL (140-400) Neutrophils (%) (Auto) 76% (31-73) Lymphocytes (%) (Auto) 19% (24-48) Monocytes (%) (Auto) 5% (0-9) Eosinophils (%) (Auto) 0% (0-3) Basophils (%) (Auto) 0% (0-3) Neutrophils # (Auto) 13.8x10^3uL (1.8-7.7) Lymphocytes # (Auto) 3.4x10^3/uL (1.0-4.8) Monocytes # (Auto) 0.9x10^3/uL (0.0-1.1) Eosinophils # (Auto) 0.0x10^3/uL (0.0-0.7) Basophils # (Auto) 0.0x10^3/uL (0.0-0.2) Sodium Level 141mmol/L (136-145) Potassium Level 3.2mmol/L (3.5-5.1) Chloride Level 105mmol/L (98-107) Carbon Dioxide Level 26mmol/L (21-32) Anion Gap 10 (6-14) Blood Urea Nitrogen 24mg/dL (7-20) Creatinine 1.1mg/dL (0.6-1.0) Estimated GFR (Cockcroft-Gault) 55.0 Glucose Level 97mg/dL (70-99) Calcium Level 8.5mg/dL (8.5-10.1) Brief Hospital Course Ms. Gunderson is a 40 old female admitted fro asthma exacrebation, continues to smoke, CXR ok, co managed with pulmo, ALready on inhalers at home, Completed course of multiple antibiotics in the past, BEing dcd on PO pred taper and doxy x 1 week, advised not to smoke,RXs provided. Pt seen and examined dw pt and RN consults; pulmo Proc none dISPO; HOME Discharge Information Condition at Discharge: Improved, Stable Disposition/Orders: D/C to Home Scheduled Amoxicillin/Potassium Clav (Augmentin 875-125 Tablet) 1 TAB PO BID Azithromycin (Zithromax) 250 MG PO DAILY Benzonatate (Benzonatate) 1 CAP PO TID Ciprofloxacin Hcl (Cipro) 1 TAB PO BID Cyclobenzaprine Hcl (Cyclobenzaprine Hcl) 10 MG PO TID Cyclobenzaprine Hcl (Cyclobenzaprine Hcl) 1 TAB PO TID Escitalopram Oxalate (Lexapro) 1 TAB PO DAILY (Reported) Fluticasone Propionate (Flonase Allergy Relief) 2 SPRAYS NS DAILY Gabapentin (Gabapentin) 1 CAP PO TID (Reported) Loratadine (Claritin) 1 TAB PO DAILY (Reported) Meloxicam (Meloxicam) 1 TAB PO DAILY (Reported) Morphine Sulfate (Morphine Sulfate Er) 15 MG PO BID (Reported) Prednisone (Prednisone) 1 TAB PO DAILY Prednisone (Prednisone) 40 MG PO DAILY Prednisone (Prednisone) 1 TAB PO DAILY Zolpidem Tartrate (Ambien) 1 TAB PO QHS (Reported) Scheduled PRN Albuterol Sulfate (Proair Respiclick) 1 PUFF IH PRN Q6HRS PRN PRN SHORTNESS OF BREATH Hydrocodone Bit/Acetaminophen (Hydrocodone-Apap 7.5-325/15 Soln ) 15 ML PO PRN Q6HRS PRN PRN PAIN Hydrocodone/Apap 5-325 ([place] 5-325 Tablet) 1 TAB PO PRN Q6HRS PRN PRN PAIN Hydrocodone/Apap 5-325 ([place] 5-325 Tablet) 1 TAB PO PRN Q6HRS PRN PRN PAIN Promethazine HCl/Codeine (Prometh-Codein 6.25-10 mg/5 ml) 5 ML PO Q6-8HRS PRN PRN COUGH Miscellaneous Medications Atorvastatin Calcium (Lipitor) 10 MG PO (Reported) Cyclobenzaprine Hcl (Cyclobenzaprine Hcl) 5 MG PO (Reported) Diazepam (Valium) 5 MG PO (Reported) Lisinopril (Lisinopril) 10 MG PO (Reported) Oxycodone Hcl/Acetaminophen (Oxycodon-Acetaminophen 2.5-325) 1 EACH PO (Reported ) Topiramate (Topamax) 25 MG PO (Reported) MEKHI FOSTER MD Mar 23, 2016 12:04
== END 2016-03-23 14:36 | disposition home or self-care (01) | DRG 189 ==
LOC: ER 20:55 → ED HOLD 03-20 00:54 → 5 SOUTH 03-20 08:32
PROVIDERS: ADMIT Internal Medicine; ATTEND Internal Medicine
DX: J96.21 Acute and chronic respiratory failure with hypoxia (principal); J44.1 Chronic obstructive pulmonary disease with (acute) exacerbation; J45.901 Unspecified asthma with (acute) exacerbation; J20.9 Acute bronchitis, unspecified; N18.9 Chronic kidney disease, unspecified; I12.9 Hypertensive chronic kidney disease with stage 1 through stage 4 chronic kidney disease, or unspecified chronic kidney disease; E78.5 Hyperlipidemia, unspecified; G47.00 Insomnia, unspecified; M62.838 Other muscle spasm; M19.90 Unspecified osteoarthritis, unspecified site; G89.29 Other chronic pain; F32.9 Major depressive disorder, single episode, unspecified; F41.9 Anxiety disorder, unspecified; Z82.49 Family history of ischemic heart disease and other diseases of the circulatory system; Z87.891 Personal history of nicotine dependence; D72.829 Elevated white blood cell count, unspecified; E78.00 Pure hypercholesterolemia, unspecified; E87.6 Hypokalemia; G43.909 Migraine, unspecified, not intractable, without status migrainosus; K21.9 Gastro-esophageal reflux disease without esophagitis; M79.7 Fibromyalgia; Z90.49 Acquired absence of other specified parts of digestive tract; Z79.899 Other long term (current) drug therapy; Z98.51 Tubal ligation status
CPT/HCPCS: 36415; 71010; 71020; 80048; 83605; 85007; 85027; 87040; 87804; 94250; 94640; 94644; 94760; 96361; 96374; J0696; J2930; J3475; J7060; J7512; J7620; 99285-25

== ENCOUNTER 2016-10-14 18:55 | Emergency (ER) | payer SELFPAY ==
[~2016-10-14] VITALS: Ht 172.7 cm; Wt 94.6 kg
[~2016-10-14 18:55] MED LIST changes: -BENZ200C39 PO; +BENZ200C47 PO; +DOXY100C2 PO; -ESCI20TA10 PO; +LEXAPRO20 MG PO; -MELO-150 PO; +MELO15TA23 PO; +NAPR-695 PO; -NAPR375T3 PO; -PARO10TA24 PO; +PARO10TA57 PO; -TOPI25TA32 PO; +TOPI25TA52 PO
--- NOTE | 2016-10-14 19:28 | PHYS DOC ---
Past Medical History Past Medical History: Asthma, Fibromyalgia, High Cholesterol, Hypertension Additional Past Medical Histor: OA, DJD, MIGRANES, FIBROIDS, FIBROMYALGIA Past Surgical History: Cholecystectomy, , Tubal ligation Additional Past Surgical Histo: R OVARY REMOVED, Alcohol Use: None Drug Use: None Adult General Chief Complaint Chief Complaint: BACK PAIN OR INJURY [facility] HPI Patient is a 40 year old female male presents to the emergency department with request for refill on her hydrocodone for her chronic back pain. Patient states she has a history of fibromyalgia and chronic back problems in her prescription refills for hydrocodone and she has no insurance. Patient reports that she bumped into the wall today and her back increase in intensity. Review of Systems Review of Systems Constitutional: Denies fever or chills [] Eyes: Denies change in visual acuity, redness, or eye pain [] HENT: Denies nasal congestion or sore throat [] Respiratory: Denies cough or shortness of breath [] Cardiovascular: No additional information not addressed in HPI [] GI: Denies abdominal pain, nausea, vomiting, bloody stools or diarrhea [] : Denies dysuria or hematuria [] Musculoskeletal: Chronic back pain Integument: Denies rash or skin lesions [] Neurologic: Denies headache, focal weakness or sensory changes [] Endocrine: Denies polyuria or polydipsia [] Current Medications Current Medications Current Medications Medications (Trade) Dose Ordered Sig/Lan Start Time Stop Time Status Last Admin Dose Admin Acetaminophen/ Hydrocodone Bitart (Lortab 5/325) 1 tab 1X ONCE 10/14/16 19:30 10/14/16 19:31 UNV Allergies Allergies Allergies Coded Allergies Type Severity Reaction Last Updated Verified No Known Drug Allergies 08/03/14 No Physical Exam Physical Exam Constitutional: Well developed, well nourished, no acute distress, non-toxic appearance. [] HENT: Normocephalic, atraumatic, bilateral external ears normal, oropharynx moist, no oral exudates, nose normal. [] Eyes: PERRLA, EOMI, conjunctiva normal, no discharge. [] Neck: Normal range of motion, no tenderness, supple, no stridor. [] Cardiovascular:Heart rate regular rhythm, no murmur [] Lungs & Thorax: Bilateral breath sounds clear to auscultation [] Abdomen: Bowel sounds normal, soft, no tenderness, no masses, no pulsatile masses. [] Skin: Warm, dry, no erythema, no rash. [] Back: Diffuse tenderness without midline or paraspinous tenderness. No obvious deformity, no evidence of trauma. Extremities: No tenderness, no cyanosis, no clubbing, ROM intact, no edema. [] Neurologic: Alert and oriented X 3, normal motor function, normal sensory function, no focal deficits noted. [] Psychologic: Affect normal, judgement normal, mood normal. [] EKG EKG [] Radiology/Procedures Radiology/Procedures [] Course & Med Decision Making Course & Med Decision Making Pertinent Labs and Imaging studies reviewed. (See chart for details) [] Dragon Disclaimer Dragon Disclaimer This electronic medical record was generated, in whole or in part, using a voice recognition dictation system. Departure Departure Impression: Primary Impression: Chronic back pain Disposition: 01 HOME, SELF-CARE Condition: STABLE Referrals: NO PCP (PCP) [facility] Patient Instructions: Chronic Back Pain Additional Instructions: All of your primary care provider or other provider as directed. Chronic use pain medications will not be refilled in the emergency department. Problem Qualifiers Primary Impression: Chronic back pain Back pain location: low back pain Back pain laterality: bilateral Sciatica presence: without sciatica Qualified Codes: M54.5 - Low back pain; G89.29 - Other chronic pain SABRA URENA APRN Oct 14, 2016 19:28
[2016-10-14 19:36] VITALS: BP 140/82
[2016-10-14] MEDS ORDERED: HYDROcodone/APAP 5/325MG 1 TAB TABLET PO ONE (20:00)
== END 2016-10-14 19:40 | disposition home or self-care (01) ==
LOC: ER 18:55
DX: G89.29 Other chronic pain (principal); M54.5 Low back pain; J45.909 Unspecified asthma, uncomplicated; M79.7 Fibromyalgia; I10 Essential (primary) hypertension; E78.00 Pure hypercholesterolemia, unspecified; M19.90 Unspecified osteoarthritis, unspecified site
CPT/HCPCS: 99282

== ENCOUNTER 2016-12-15 21:11 | Emergency (ER) | payer SELFPAY ==
[~2016-12-15] VITALS: Ht 170.2 cm; Wt 93.0 kg
[2016-12-15 21:13] VITALS: BP 152/93
[2016-12-15] MEDS ORDERED: METH4TAB2 PO (21:46)
--- NOTE | 2016-12-15 21:46 | PHYS DOC ---
Past Medical History Past Medical History: Asthma, Fibromyalgia, High Cholesterol, Hypertension Additional Past Medical Histor: OA, DJD, MIGRANES, FIBROIDS, FIBROMYALGIA Past Surgical History: Cholecystectomy, , Oophorectomy, Tubal ligation Additional Past Surgical Histo: R OVARY REMOVED, Alcohol Use: None Drug Use: None Adult General Chief Complaint Chief Complaint: Congestion HPI HPI Patient is a 40 year old female who presents with complaint of sinus pressure. Patient states that she has history of chronic sinus congestion. Patient has had multiple visits for similar symptoms in the past. Patient also states she has history of chronic low back pain, however she states that her sinus pressure is the primary reason she came into the emergency department for evaluation. Patient denies any recent fevers. The patient states that she does not have insurance and is not following with a physician at this time. The patient states that the worst of her pressure is underneath both eyes. Patient states that she has been taking Tylenol, Motrin, Benadryl, and has been using albuterol at home to try to help with her symptoms. Patient states this is offered no relief. Due to worsening symptoms the patient came to the emergency department tonight for evaluation. Review of Systems Review of Systems Constitutional: Denies fever or chills [] Eyes: Denies change in visual acuity, redness, or eye pain [] HENT: Sinus pressure, nasal congestion, denies sore throat[] Respiratory: Denies cough or shortness of breath [] Musculoskeletal: Denies back pain or joint pain [] Integument: Denies rash or skin lesions [] Neurologic: Denies headache, focal weakness or sensory changes [] All other systems were reviewed and found to be within normal limits, except as documented in this note. Allergies Allergies Allergies Coded Allergies Type Severity Reaction Last Updated Verified No Known Drug Allergies 08/03/14 No Physical Exam Physical Exam Constitutional: Alert, afebrile, no acute distress. [] HENT: Normocephalic, atraumatic, bilateral external ears normal, oropharynx moist, no oral exudates, nasal mucosal edema, thick rhinorrhea, mild tenderness to bilateral maxillary sinuses. [] Eyes: PERRLA, EOMI, conjunctiva normal, no discharge. [] Neck: Normal range of motion, no tenderness, no lymphadenopathy, supple, no stridor. [] Cardiovascular:Heart rate regular rhythm, no murmur [] Lungs & Thorax: Bilateral breath sounds clear to auscultation [] Abdomen: Bowel sounds normal, soft, no tenderness, no masses, no pulsatile masses. [] Skin: Warm, dry, no erythema, no rash. [] Extremities: No tenderness, no cyanosis, no clubbing, ROM intact, no edema. [] Neurologic: Alert and oriented X 3, normal motor function, normal sensory function, no focal deficits noted. [] Current Patient Data Vital Signs Vital Signs Date Time Temp Pulse Resp B/P (MAP) Pulse Ox O2 Delivery O2 Flow Rate FiO2 12/15/16 21:13 99.4 79 18 99 Room Air 99.4 EKG EKG Not performed[] Radiology/Procedures Radiology/Procedures Not performed[] Course & Med Decision Making Course & Med Decision Making Pertinent Labs and Imaging studies reviewed. (See chart for details) The patient was given Afrin and prednisone in the emergency department. The patient's symptoms appear consistent with ongoing chronic sinusitis. I do not see evidence of acute bacterial infection on exam and patient's vital signs are stable. Advised the patient to use warm moist air to help clear nasal passages as well as use of sinus rinse at home. Recommended use of fluticasone steroid nasal spray daily to help reduce chronic inflammation. Patient was given referral to [facility] and recommended follow-up in one week for reevaluation. Advised return emergency department for any worsening symptoms. Patient voiced understanding and in agreement with treatment plan. Dragon Disclaimer Dragon Disclaimer This electronic medical record was generated, in whole or in part, using a voice recognition dictation system. Departure Departure Impression: Primary Impression: Chronic sinusitis of both maxillary sinuses Disposition: 01 HOME, SELF-CARE Condition: IMPROVED Referrals: NO PCP (PCP) Patient Instructions: Sinusitis Additional Instructions: Follow-up with your primary doctor in 1 week for reevaluation. Return to the emergency department for any worsening symptoms. Scripts Methylprednisolone (MEDROL) 4 Mg Tab.ds.pk 1 PKG PO UD, #1 PKG Prov: RAYMOND CHAUDHRY MD 12/15/16 RAYMOND CHAUDHRY MD Dec 15, 2016 21:46
[2016-12-15] MEDS ORDERED: predniSONE 20 MG TABLET PO ONE (22:00)
[2016-12-15] MEDS ORDERED: OXYMETAZOLINE 0.05% NASAL SPRAY 30ML BOTTLE. NS ONE (22:00)
== END 2016-12-15 22:01 | disposition home or self-care (01) ==
LOC: ER 21:11
DX: J32.0 Chronic maxillary sinusitis (principal); G89.29 Other chronic pain; J45.909 Unspecified asthma, uncomplicated; M79.7 Fibromyalgia; E78.00 Pure hypercholesterolemia, unspecified; I10 Essential (primary) hypertension; M19.90 Unspecified osteoarthritis, unspecified site
CPT/HCPCS: 99283; J7512

== ENCOUNTER 2017-04-23 20:22 | Emergency (ER) | payer SELFPAY | END 2017-04-23 20:40 | disposition home or self-care (01) | LOC: ER 20:22 | DX: J32.0 Chronic maxillary sinusitis (principal); J45.909 Unspecified asthma, uncomplicated; M79.7 Fibromyalgia; E78.00 Pure hypercholesterolemia, unspecified; I10 Essential (primary) hypertension; M19.90 Unspecified osteoarthritis, unspecified site; G43.909 Migraine, unspecified, not intractable, without status migrainosus; Z90.49 Acquired absence of other specified parts of digestive tract; Z98.51 Tubal ligation status; Z90.721 Acquired absence of ovaries, unilateral | CPT/HCPCS: 99283 ==

== ENCOUNTER 2017-05-13 18:56 | Emergency (ER) | payer SELFPAY ==
[2017-05-13] MEDS: FLUTICASONE 50MCG/NASAL SPRAY 16GM BOTTLE. NS (19:50)
[2017-05-13] MEDS: cefTRIAXone IM 1 GM VIAL IM (19:50)
[2017-05-13] MEDS: LIDOCAINE 1% PF 2 ML VIAL. INJ (19:50)
[2017-05-13] MEDS: methylPREDNISolone SOD SUCC PF 125 MG/2 ML VIAL. IM (19:50)
== END 2017-05-13 20:00 | disposition home or self-care (01) ==
LOC: ER 20:00
DX: J32.0 Chronic maxillary sinusitis (principal); R63.4 Abnormal weight loss; J44.9 Chronic obstructive pulmonary disease, unspecified; M79.7 Fibromyalgia; E78.00 Pure hypercholesterolemia, unspecified; I10 Essential (primary) hypertension; M19.90 Unspecified osteoarthritis, unspecified site; Z87.891 Personal history of nicotine dependence; Z90.49 Acquired absence of other specified parts of digestive tract; Z98.51 Tubal ligation status; Z90.721 Acquired absence of ovaries, unilateral; Z68.30 Body mass index [BMI] 30.0-30.9, adult
CPT/HCPCS: 96372; 99284; J0696; J2930

== ENCOUNTER 2017-10-16 21:27 | Emergency (ER) | payer SELFPAY ==
[~2017-10-16] VITALS: Ht 170.2 cm; Wt 88.9 kg
[~2017-10-16 21:27] MED LIST changes: +AMOX500T PO; +METH4TAB2 PO; +TRAM50TA PO
[2017-10-16 21:39] VITALS: BP 141/88
[2017-10-16] MEDS ORDERED: AMOX500C PO (21:47)
--- NOTE | 2017-10-16 21:47 | PHYS DOC ---
Past Medical History Past Medical History: Asthma, COPD, Fibromyalgia, High Cholesterol, Hypertension Additional Past Medical Histor: OA, DJD, MIGRANES, FIBROIDS, FIBROMYALGIA Past Surgical History: Cholecystectomy, , Oophorectomy, Tubal ligation Additional Past Surgical Histo: R OVARY REMOVED, Alcohol Use: None Drug Use: None Adult General Chief Complaint Chief Complaint: Congestion HPI HPI Patient is a 41 year old female who presents with sinus tenderness and congestion 2 months. The patient does have a history of sinusitis. She states that this feels like similar infections in the past. She states that it started as cold-like symptoms approximately 2 months ago and has gradually worsened. She is now having pressure to her frontal and maxillary sinuses as well as pain. Review of Systems Review of Systems Constitutional: Denies fever or chills [] Eyes: Denies change in visual acuity, redness, or eye pain [] HENT: See history of present illness Respiratory: Denies cough or shortness of breath [] Cardiovascular: No additional information not addressed in HPI [] Musculoskeletal: Denies back pain or joint pain [] Integument: Denies rash or skin lesions [] Neurologic: Denies headache, focal weakness or sensory changes [] Endocrine: Denies polyuria or polydipsia [] All other systems were reviewed and found to be within normal limits, except as documented in this note. Current Medications Current Medications Current Medications Medications (Trade) Dose Ordered Sig/Lan Start Time Stop Time Status Last Admin Dose Admin Ceftriaxone Sodium (Rocephin Im) 1 gm 1X ONCE 10/16/17 21:45 10/16/17 21:49 DC 10/16/17 21:49 1 GM Allergies Allergies Allergies Coded Allergies Type Severity Reaction Last Updated Verified No Known Drug Allergies 08/03/14 No Physical Exam Physical Exam Constitutional: Well developed, well nourished, no acute distress, non-toxic appearance. [] HENT: Normocephalic, atraumatic, bilateral external ears normal, sinus drainage noted to back of throat, tenderness with palpation of frontal and maxillary sinuses bilaterally Eyes: PERRLA, EOMI, conjunctiva normal, no discharge. [] Neck: Normal range of motion, no tenderness, supple, no stridor. [] Cardiovascular:Heart rate regular rhythm, no murmur [] Lungs & Thorax: Bilateral breath sounds clear to auscultation [] Abdomen: Bowel sounds normal, soft, no tenderness, no masses, no pulsatile masses. [] Skin: Warm, dry, no erythema, no rash. [] Neurologic: Alert and oriented X 3, normal motor function, normal sensory function, no focal deficits noted. [] Psychologic: Affect normal, judgement normal, mood normal. [] Current Patient Data Vital Signs Vital Signs Date Time Temp Pulse Resp B/P (MAP) Pulse Ox O2 Delivery O2 Flow Rate FiO2 10/16/17 21:39 99.1 96 18 141/88 (105) 99 Room Air 99.1 EKG EKG [] Radiology/Procedures Radiology/Procedures [] Course & Med Decision Making Course & Med Decision Making Pertinent Labs and Imaging studies reviewed. (See chart for details) []The patient was given a gram of Rocephin in the emergency department. 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 Dragon Disclaimer Dragon Disclaimer This electronic medical record was generated, in whole or in part, using a voice recognition dictation system. Departure Departure Impression: Primary Impression: Sinusitis Disposition: 01 HOME, SELF-CARE Condition: STABLE Referrals: NO PCP (PCP) Patient Instructions: Sinusitis Additional Instructions: Take the medication as directed. Increase fluids and rest. Follow-up with your primary care provider if not improving in one week or return to the emergency department if worsening. Scripts Amoxicillin (AMOXICILLIN) 500 Mg Capsule 2 CAP PO BID, #40 CAP Prov: ADELE OSWALD APRN 10/16/17 ADELE OSWALD APRN Oct 16, 2017 21:47
[2017-10-16] MEDS: cefTRIAXone IM 1 GM VIAL IM ONE (21:49)
== END 2017-10-16 21:54 | disposition home or self-care (01) ==
LOC: ER 21:27
DX: J32.0 Chronic maxillary sinusitis (principal); J44.9 Chronic obstructive pulmonary disease, unspecified; E78.00 Pure hypercholesterolemia, unspecified; I10 Essential (primary) hypertension; M19.90 Unspecified osteoarthritis, unspecified site; G43.909 Migraine, unspecified, not intractable, without status migrainosus; Z90.49 Acquired absence of other specified parts of digestive tract; Z98.890 Other specified postprocedural states; Z98.51 Tubal ligation status
CPT/HCPCS: 96372; 99283; J0696

== ENCOUNTER 2017-11-01 15:20 | Emergency (ER) | payer SELFPAY ==
[~2017-11-01 15:20] MED LIST changes: +AMOX500C PO
== END 2017-11-01 16:31 ==
LOC: ER 15:20
DX: R09.81 Nasal congestion (principal); Z53.21 Procedure and treatment not carried out due to patient leaving prior to being seen by health care provider

== ENCOUNTER 2018-01-04 15:26 | Emergency (ER) | payer MEDICAID ==
[~2018-01-04] VITALS: Ht 170.2 cm; Wt 95.3 kg
[~2018-01-04 15:26] MED LIST changes: +HYDR-3164 PO; -HYDR-971 PO; -HYDR15SO4 PO; +HYDR15SO6 PO
[2018-01-04 15:36] VITALS: BP 128/81
[2018-01-04] MEDS ORDERED: IPRATRPIUM/ALBUTEROL 0.5/2.5MG 3 ML NEBU. NEB ONE (15:45)
[2018-01-04] MEDS ORDERED: METH4TAB2 PO (16:32)
--- NOTE | 2018-01-04 16:34 | PHYS DOC ---
Past Medical History Past Medical History: Asthma, COPD, Fibromyalgia, High Cholesterol, Hypertension Additional Past Medical Histor: OA, DJD, MIGRANES, FIBROIDS, FIBROMYALGIA Past Surgical History: Cholecystectomy, , Oophorectomy, Tubal ligation Additional Past Surgical Histo: R OVARY REMOVED, Alcohol Use: None Drug Use: None Adult General Chief Complaint Chief Complaint: Congestion HPI HPI Patient is a 42 year old female who presents with chronic sinusitis since August. She states that she was recently on antibiotics, but states as soon as stop taking the antibiotics her symptoms reappeared. She is supposed to see an law researcher on January 18, 2018. She states she has also been having exacerbations of her asthma. Review of Systems Review of Systems Constitutional: Denies fever or chills [] Eyes: Denies change in visual acuity, redness, or eye pain [] HENT: See history of present illness Respiratory: Denies cough or shortness of breath [] Cardiovascular: No additional information not addressed in HPI [] Neurologic: Denies headache, focal weakness or sensory changes [] Endocrine: Denies polyuria or polydipsia [] All other systems were reviewed and found to be within normal limits, except as documented in this note. Current Medications Current Medications Current Medications Medications (Trade) Dose Ordered Sig/Lan Start Time Stop Time Status Last Admin Dose Admin Albuterol/ Ipratropium (Duoneb) 3 ml 1X ONCE 01/04/18 15:45 01/04/18 15:46 DC 01/04/18 16:02 3 ML Allergies Allergies Allergies Coded Allergies Type Severity Reaction Last Updated Verified No Known Drug Allergies 08/03/14 No Physical Exam Physical Exam Constitutional: Well developed, well nourished, no acute distress, non-toxic appearance. [] HENT: Normocephalic, atraumatic, bilateral external ears normal, oropharynx moist, no oral exudates, cobblestoning to back of throat nose normal. [] Eyes: PERRLA, EOMI, conjunctiva normal, no discharge. [] Neck: Normal range of motion, no tenderness, supple, no stridor. [] Cardiovascular:Heart rate regular rhythm, no murmur [] Lungs & Thorax: Bilateral breath sounds clear to auscultation [] Neurologic: Alert and oriented X 3, normal motor function, normal sensory function, no focal deficits noted. [] Psychologic: Affect normal, judgement normal, mood normal. [] Current Patient Data Vital Signs Vital Signs Date Time Temp Pulse Resp B/P (MAP) Pulse Ox O2 Delivery O2 Flow Rate FiO2 01/04/18 16:04 98 Room Air 01/04/18 15:36 98.3 86 20 128/81 (97) 98.3 EKG EKG [] Radiology/Procedures Radiology/Procedures [] Course & Med Decision Making Course & Med Decision Making Pertinent Labs and Imaging studies reviewed. (See chart for details) []The patient has been encouraged to keep her follow-up appointment with ENT. We will start around of steroids to help with symptom control. We will defer antibiotics to ENT. Dragon Disclaimer Dragon Disclaimer This electronic medical record was generated, in whole or in part, using a voice recognition dictation system. Departure Departure Impression: Primary Impression: Chronic sinusitis Additional Impression: Asthma Disposition: HOME, SELF-CARE Condition: STABLE Referrals: MAURICIO HUFFMAN (PCP) Patient Instructions: Asthma, Adult, Sinusitis Additional Instructions: Take the medication as directed. Keep your scheduled appointment with your ear, nose and throat specialist. If worsening return to the emergency department.. Scripts Methylprednisolone (MEDROL) 4 Mg Tab.ds.pk 1 PKG PO UD for wheezing, #1 PKG Prov: ADELE OSWALD APRN 01/04/18 Problem Qualifiers ADELE OSWALD APRN Jan 04, 2018 16:34
== END 2018-01-04 16:45 | disposition home or self-care (01) ==
LOC: ER 15:26
DX: J45.909 Unspecified asthma, uncomplicated (principal); J32.9 Chronic sinusitis, unspecified; J44.9 Chronic obstructive pulmonary disease, unspecified; E78.00 Pure hypercholesterolemia, unspecified; I10 Essential (primary) hypertension; G43.909 Migraine, unspecified, not intractable, without status migrainosus
CPT/HCPCS: 94640; 99283; J7620

== ENCOUNTER 2018-01-22 15:17 | Emergency (ER) | payer MEDICAID, OTHER ==
[~2018-01-22] VITALS: Ht 175.3 cm; Wt 96.8 kg
[~2018-01-22 15:17] MED LIST changes: -GABA-586 PO; +GABA300C18 PO
[2018-01-22] MEDS ORDERED: FAMOTIDINE 20 MG/2 ML VIAL IVP ONE (16:00)
[2018-01-22] MEDS ORDERED: MORPHINE SULFATE 4 MG/ML VIAL. IV ONE (16:00)
[2018-01-22] MEDS ORDERED: ONDANSETRON PF 4 MG/2 ML VIAL. IV ONE (16:00)
[2018-01-22 16:08] LABS: BILIRUBIN,URINE NEGATIVE (NEG); CLARITY,URINE CLOUDY; COLOR,URINE YELLOW; NITRITE,URINE NEGATIVE (NEG); PH,URINE 6.5; PROTEIN,URINE 30 mg/dL (NEG-TRACE); UROBILINOGEN,URINE 0.2 mg/dL (0.2 mg/dL)
--- NOTE | 2018-01-22 16:09 | PHYS DOC ---
Past Medical History Past Medical History: Asthma, COPD, Fibromyalgia, High Cholesterol, Hypertension Additional Past Medical Histor: OA, DJD, MIGRANES, FIBROIDS, FIBROMYALGIA Past Surgical History: Cholecystectomy, , Oophorectomy, Tubal ligation Additional Past Surgical Histo: R OVARY REMOVED, Alcohol Use: None Drug Use: None Adult General Chief Complaint Chief Complaint: ABDOMINAL PAIN HPI HPI Patient is a 42 year old female with a history of fibromyalgia, asthma, hypertension, high cholesterol, who presents today complaining of mild to moderate epigastric abdominal pain that has been going on intermittently since yesterday. Patient states she was seen by her doctor at [facility] yesterday and was worked up for an ovarian cyst. Patient states due to the "mashing" off her abdomen during the exam she is experiencing epigastric pain. Denies any nausea vomiting. Denies any chance she is , denies any urgency frequency or dysuria. Review of Systems Review of Systems Constitutional: Denies fever or chills [] Eyes: Denies change in visual acuity, redness, or eye pain [] HENT: Denies nasal congestion or sore throat [] Respiratory: Denies cough or shortness of breath [] Cardiovascular: No additional information not addressed in HPI [] GI: Reports epigastric abdominal pain, denies nausea, vomiting, bloody stools or diarrhea [] : Denies dysuria or hematuria [] Musculoskeletal: Denies back pain or joint pain [] Integument: Denies rash or skin lesions [] Neurologic: Denies headache, focal weakness or sensory changes [] All other systems were reviewed and found to be within normal limits, except as documented in this note. Current Medications Current Medications Current Medications Medications (Trade) Dose Ordered Sig/Lan Start Time Stop Time Status Last Admin Dose Admin Ceftriaxone Sodium (Rocephin) 1 gm 1X ONCE 01/22/18 17:00 01/22/18 17:01 DC 01/22/18 17:32 1 GM Famotidine (Pepcid Vial) 20 mg 1X ONCE 01/22/18 16:00 01/22/18 16:01 DC 01/22/18 16:32 20 MG Morphine Sulfate (Morphine Sulfate) 4 mg 1X ONCE 01/22/18 16:00 01/22/18 16:01 DC 01/22/18 16:30 4 MG Ondansetron HCl (Zofran) 4 mg 1X ONCE 01/22/18 16:00 01/22/18 16:01 DC 01/22/18 16:30 4 MG Allergies Allergies Allergies Coded Allergies Type Severity Reaction Last Updated Verified No Known Drug Allergies 08/03/14 No Physical Exam Physical Exam Constitutional: Well developed, well nourished, no acute distress, non-toxic appearance. [] HENT: Normocephalic, atraumatic, bilateral external ears normal, oropharynx moist, no oral exudates, nose normal. [] Eyes: PERRLA, EOMI, conjunctiva normal, no discharge. [] Neck: Normal range of motion, no tenderness, supple, no stridor. [] Cardiovascular:Heart rate regular rhythm, no murmur [] Lungs & Thorax: Bilateral breath sounds clear to auscultation [] Abdomen: Rounded abdomen. Bowel sounds normal, soft, slight epigastric tenderness, no right upper quadrant or right lower quadrant tenderness, no masses, no pulsatile masses. Negative Bhatia sign, negative psoas sign, negative obturator sign Skin: Warm, dry, no erythema, no rash. [] Back: No tenderness, no CVA tenderness. [] Extremities: No tenderness, no cyanosis, no clubbing, ROM intact, no edema. [] Neurologic: Alert and oriented X 3, normal motor function, normal sensory function, no focal deficits noted. [] Psychologic: Affect normal, judgement normal, mood normal. [] Current Patient Data Vital Signs Vital Signs Date Time Temp Pulse Resp B/P (MAP) Pulse Ox O2 Delivery O2 Flow Rate FiO2 01/22/18 17:12 86 16 122/78 (93) 98 Room Air 01/22/18 15:50 98.3 98.3 Lab Values Laboratory Tests Test 01/22/18 15:42 01/22/18 15:45 01/22/18 16:34 POC Urine HCG, Qualitative Hcg negative (Negative) Urine Collection Type Unknown Urine Color Yellow Urine Clarity Cloudy Urine pH 6.5 Urine Specific Adrian 1.015 Urine Protein 30 mg/dL (NEG-TRACE) Urine Glucose (UA) Negative mg/dL (NEG) Urine Ketones (Stick) Negative mg/dL (NEG) Urine Blood Trace (NEG) Urine Nitrite Negative (NEG) Urine Bilirubin Negative (NEG) Urine Urobilinogen Dipstick 0.2 mg/dL (0.2 mg/dL) Urine Leukocyte Esterase Moderate (NEG) Urine RBC 6-10 /HPF (0-2) Urine WBC >40 /HPF (0-4) Urine Squamous Epithelial Cells Many /LPF Urine Transitional Epithelial Cells Few /LPF Urine Bacteria Moderate /HPF (0-FEW) Urine Opiates Screen Neg (NEG) Urine Methadone Screen Neg (NEG) Urine Barbiturates Neg (NEG) Urine Phencyclidine Screen Neg (NEG) Urine Amphetamine/Methamphetamine Neg (NEG) Urine Benzodiazepines Screen Neg (NEG) Urine Cocaine Screen Neg (NEG) Urine Cannabinoids Screen Neg (NEG) Urine Ethyl Alcohol Neg (NEG) White Blood Count 8.0 x10^3/uL (4.0-11.0) Red Blood Count 4.39 x10^6/uL (3.50-5.40) Hemoglobin 14.1 g/dL (12.0-15.5) Hematocrit 39.4 % (36.0-47.0) Mean Corpuscular Volume 90 fL (79-100) Mean Corpuscular Hemoglobin 32 pg (25-35) Mean Corpuscular Hemoglobin Concent 36 g/dL (31-37) Red Cell Distribution Width 13.2 % (11.5-14.5) Platelet Count 208 x10^3/uL (140-400) Neutrophils (%) (Auto) 66 % (31-73) Lymphocytes (%) (Auto) 20 % (24-48) L Monocytes (%) (Auto) 6 % (0-9) Eosinophils (%) (Auto) 7 % (0-3) H Basophils (%) (Auto) 1 % (0-3) Neutrophils # (Auto) 5.2 x10^3uL (1.8-7.7) Lymphocytes # (Auto) 1.6 x10^3/uL (1.0-4.8) Monocytes # (Auto) 0.5 x10^3/uL (0.0-1.1) Eosinophils # (Auto) 0.6 x10^3/uL (0.0-0.7) Basophils # (Auto) 0.1 x10^3/uL (0.0-0.2) Sodium Level 141 mmol/L (136-145) Potassium Level 3.4 mmol/L (3.5-5.1) L Chloride Level 106 mmol/L (98-107) Carbon Dioxide Level 28 mmol/L (21-32) Anion Gap 7 (6-14) Blood Urea Nitrogen 12 mg/dL (7-20) Creatinine 1.3 mg/dL (0.6-1.0) H Estimated GFR (Cockcroft-Gault) 44.9 BUN/Creatinine Ratio 9 (6-20) Glucose Level 99 mg/dL (70-99) Calcium Level 9.5 mg/dL (8.5-10.1) Total Bilirubin 0.5 mg/dL (0.2-1.0) Aspartate Amino Transferase (AST) 15 U/L (15-37) Alanine Aminotransferase (ALT) 25 U/L (14-59) Alkaline Phosphatase 67 U/L (46-116) Total Protein 7.6 g/dL (6.4-8.2) Albumin 3.5 g/dL (3.4-5.0) Albumin/Globulin Ratio 0.9 (1.0-1.7) L Lipase 267 U/L (73-393) Ethyl Alcohol Level < 10 mg/dL (0-10) Laboratory Tests 01/22/18 16:34 Laboratory Tests 01/22/18 16:34 EKG EKG [] Radiology/Procedures Radiology/Procedures [] Course & Med Decision Making Course & Med Decision Making Pertinent Labs and Imaging studies reviewed. (See chart for details) This is a 42-year-old female patient presenting to the ED today complaining of epigastric abdominal pain that began yesterday. CBC with a normal WBC, CMP with no acute findings, urine analysis is noted for UTI, given Rocephin in the ED and discharged with cephalexin. Follow-up with primary care doctor in the course of next week, instructed to push fluids. Dragon Disclaimer Dragon Disclaimer This electronic medical record was generated, in whole or in part, using a voice recognition dictation system. Departure Departure Impression: Primary Impression: UTI (urinary tract infection) Disposition: 01 HOME, SELF-CARE Condition: STABLE Referrals: MAURICIO HUFFMAN (PCP) Follow-up in one week Patient Instructions: Urinary Tract Infection Additional Instructions: You were evaluated in the emergency room and noted to have urinary tract infection, we put you on antibiotics, ensure you complete them. Follow-up with your own doctor in one week. Push fluids. Come back to the ED at any point symptoms worsen. Scripts Cephalexin (CEPHALEXIN) 500 Mg Tablet 1 TAB PO BID, #14 TAB Prov: ALEJANDRO CORLEY APRN 01/22/18 Problem Qualifiers Primary Impression: UTI (urinary tract infection) Urinary tract infection type: site unspecified Hematuria presence: without hematuria Qualified Codes: N39.0 - Urinary tract infection, site not specified ALEJANDRO CORLEY APRN Jan 22, 2018 16:09
[2018-01-22 16:15] LABS: BARBITURATES NEG (NEG); BENZODIAZEPINES NEG (NEG); CANNABINOIDS NEG (NEG); COCAINE NEG (NEG); METHADONE NEG (NEG); OPIATES NEG (NEG); PHENCYCLIDINE NEG (NEG)
[2018-01-22 16:16] LABS: AMPHETAMINE/METHAMPHETAMINE NEG (NEG); SQUAMOUS EPITHELIAL CELL,UR MANY /LPF
[2018-01-22 16:18] LABS: BACTERIA,URINE MODERATE /HPF (0-FEW); WBC,URINE >40 /HPF (0-4)
[2018-01-22 16:45] LABS: BASO # 0.1 x10^3/uL (0.0-0.2); BASO % 1 % (0-3); EOS # 0.6 x10^3/uL (0.0-0.7); EOS % 7 % (0-3); HEMATOCRIT 39.4 % (36.0-47.0); HEMOGLOBIN 14.1 g/dL (12.0-15.5); LYMPH # 1.6 x10^3/uL (1.0-4.8); LYMPH % 20 % (24-48); MEAN CORPUSCULAR HEMOGLOBIN 32 pg (25-35); MEAN CORPUSCULAR HGB CONC 36 g/dL (31-37); MEAN CORPUSCULAR VOLUME 90 fL (79-100); MONO # 0.5 x10^3/uL (0.0-1.1); MONO % 6 % (0-9); NEUT # 5.2 x10^3uL (1.8-7.7); NEUT % 66 % (31-73); PLATELET COUNT 208 x10^3/uL (140-400); RED BLOOD COUNT 4.39 x10^6/uL (3.50-5.40); RED CELL DISTRIBUTION WIDTH 13.2 % (11.5-14.5)
[2018-01-22 16:53] LABS: CALCIUM 9.5 mg/dL (8.5-10.1); CREATININE 1.3 mg/dL (0.6-1.0); GFR 44.9; POTASSIUM 3.4 mmol/L (3.5-5.1)
[2018-01-22 16:59] LABS: ALBUMIN 3.5 g/dL (3.4-5.0); ALBUMIN/GLOBULIN RATIO 0.9 (1.0-1.7); TOTAL BILIRUBIN 0.5 mg/dL (0.2-1.0); TOTAL PROTEIN 7.6 g/dL (6.4-8.2)
[2018-01-22] MEDS ORDERED: cefTRIAXone IV Push 1 GM VIAL. IVP ONE (17:00)
[2018-01-22] MEDS ORDERED: CEPH500T PO (18:10)
[2018-01-22 18:26] VITALS: BP 126/80
== END 2018-01-22 18:27 | disposition home or self-care (01) ==
LOC: ER 15:17
DX: N39.0 Urinary tract infection, site not specified (principal); J44.9 Chronic obstructive pulmonary disease, unspecified; M79.7 Fibromyalgia; E78.00 Pure hypercholesterolemia, unspecified; I10 Essential (primary) hypertension; G43.909 Migraine, unspecified, not intractable, without status migrainosus; Z90.49 Acquired absence of other specified parts of digestive tract; Z98.890 Other specified postprocedural states; Z98.51 Tubal ligation status; Z90.721 Acquired absence of ovaries, unilateral
CPT/HCPCS: 36415; 80053; 80307; 81001; 81025; 83690; 85025; 87086; 96374; 96375; 99284; G0480; J0696; J2270; J2405; J3490

== ENCOUNTER 2018-07-05 14:54 | Emergency (ER) | payer MEDICAID ==
[~2018-07-05] VITALS: Ht 170.2 cm; Wt 99.8 kg
[~2018-07-05 14:54] MED LIST changes: +CEPH500T PO; -QUET50TA8 PO; +QUET50TA9 PO
[2018-07-05 15:30] VITALS: BP 160/88
--- NOTE | 2018-07-05 15:53 | PHYS DOC ---
Past Medical History Past Medical History: Asthma, COPD, Fibromyalgia, High Cholesterol, Hypertension, Ovarian Cyst Additional Past Medical Histor: OA, DJD, MIGRANES, FIBROIDS, FIBROMYALGIA Past Surgical History: Cholecystectomy, , Oophorectomy, Tubal ligation Additional Past Surgical Histo: R OVARY REMOVED, Alcohol Use: None Drug Use: None Adult General Chief Complaint Chief Complaint: POST-OP PROBLEM HPI HPI Patient is a 42 year old female who presents with draining from her incision sites. Patient reports she had hysterectomy surgery on June 24, had been hos pitalized until until July 02 at [facility]. Reports her surgeon was Dr. Quintanilla. Reports she had received in the antibiotic [facility] as far she knows, does report she had hypocarbic kalemia and hypo-dysemia while in the hospital which is what she had to stay. Reports over the last 2 days she has noticed some drainage from her incision site. Reports she has not had any tenderness, other than near the incision site. Reports they had tried to do a laparoscopic surgery on her to remove her uterus or unable to due to the size of her uterus, which caused him to do the midline incision. Patient reports today she noticed a large amount of fluid drainage from her incision. Has not had any follow-up with her surgeon, reports her next follow-up is July or August 24, she is not sure. Denies recent antibiotic use and reports minimal discomfort at this time. Does report she has a history of renal insufficiency, has been following with her primary care, and has an appointment coming up to further evaluate this, as well as her fatty liver disease. Review of Systems Review of Systems Constitutional: Denies fever or chills [] Respiratory: Denies cough or shortness of breath [] Cardiovascular: No additional information not addressed in HPI [] GI: Denies abdominal pain, nausea, vomiting, bloody stools or diarrhea [] : Denies dysuria or hematuria [] Musculoskeletal: Denies back pain or joint pain [] Integument: Denies rash, reports drainage from skin incision, midline abdomen [] Neurologic: Denies headache, focal weakness or sensory changes [] Endocrine: Denies polyuria or polydipsia [] All other systems were reviewed and found to be within normal limits, except as documented in this note. Current Medications Current Medications Current Medications Medications (Trade) Dose Ordered Sig/Lan Start Time Stop Time Status Last Admin Dose Admin Ceftriaxone Sodium (Rocephin) 1 gm 1X ONCE 07/05/18 16:00 07/05/18 16:01 DC 07/05/18 17:26 1 GM Sodium Chloride 1,000 ml @ 1,000 mls/hr 1X ONCE 07/05/18 16:00 07/05/18 16:59 DC 07/05/18 17:26 1,000 MLS/HR Allergies Allergies Allergies Coded Allergies Type Severity Reaction Last Updated Verified No Known Drug Allergies 08/03/14 No Physical Exam Physical Exam Constitutional: Well developed, well nourished, no acute distress, non-toxic appearance. [] HENT: Normocephalic, atraumatic, bilateral external ears normal, oropharynx moist, no oral exudates, nose normal. [] Eyes: PERRLA, EOMI, conjunctiva normal, no discharge. [] Neck: Normal range of motion, no tenderness, supple, no stridor. [] Cardiovascular:Heart rate regular rhythm, no murmur [] Lungs & Thorax: Bilateral breath sounds clear to auscultation [] Abdomen: Bowel sounds normal, soft, no tenderness, no pulsatile masses. Noted approximately 2cm diameter nodule to right lower quadrant below subcutaneous layer, near bruising area on the abdomen. Area multiple, soft. [] Skin: Warm, dry, , no rash. The xiphoid to superior umbilicus. Appears well approximated, minimal erythema surrounding the incision site, Lurdes to whitish purulence noted inferior portion. Small firm area to inferior portion. No additional masses or firm areas noted minimal purulence noted to mid incision. Approximately 6 cm diameter bruised area to right lower quadrant, overlying previous mentioned nodule. [] Back: No tenderness, no CVA tenderness. [] Extremities: No tenderness, no cyanosis, no clubbing, ROM intact, no edema. [] Neurologic: Alert and oriented X 3, normal motor function, normal sensory function, no focal deficits noted. [] Psychologic: Affect normal, judgement normal, mood normal. [] Current Patient Data Vital Signs Vital Signs Date Time Temp Pulse Resp B/P (MAP) Pulse Ox O2 Delivery O2 Flow Rate FiO2 07/05/18 15:30 98.6 84 16 160/88 (112) 98 Room Air 98.6 Lab Values Laboratory Tests Test 07/05/18 16:55 White Blood Count 10.8 x10^3/uL (4.0-11.0) Red Blood Count 4.05 x10^6/uL (3.50-5.40) Hemoglobin 12.8 g/dL (12.0-15.5) Hematocrit 37.0 % (36.0-47.0) Mean Corpuscular Volume 91 fL (79-100) Mean Corpuscular Hemoglobin 32 pg (25-35) Mean Corpuscular Hemoglobin Concent 35 g/dL (31-37) Red Cell Distribution Width 13.9 % (11.5-14.5) Platelet Count 254 x10^3/uL (140-400) Neutrophils (%) (Auto) 62 % (31-73) Lymphocytes (%) (Auto) 16 % (24-48) L Monocytes (%) (Auto) 5 % (0-9) Eosinophils (%) (Auto) 16 % (0-3) H Basophils (%) (Auto) 1 % (0-3) Neutrophils # (Auto) 6.6 x10^3uL (1.8-7.7) Lymphocytes # (Auto) 1.8 x10^3/uL (1.0-4.8) Monocytes # (Auto) 0.5 x10^3/uL (0.0-1.1) Eosinophils # (Auto) 1.7 x10^3/uL (0.0-0.7) H Basophils # (Auto) 0.1 x10^3/uL (0.0-0.2) Platelet Estimate Pending Sodium Level 143 mmol/L (136-145) Potassium Level 3.1 mmol/L (3.5-5.1) L Chloride Level 105 mmol/L (98-107) Carbon Dioxide Level 24 mmol/L (21-32) Anion Gap 14 (6-14) Blood Urea Nitrogen 21 mg/dL (7-20) H Creatinine 1.9 mg/dL (0.6-1.0) H Estimated GFR (Cockcroft-Gault) 29.0 BUN/Creatinine Ratio 11 (6-20) Glucose Level 103 mg/dL (70-99) H Lactic Acid Level 0.8 mmol/L (0.4-2.0) Calcium Level 9.2 mg/dL (8.5-10.1) Magnesium Level 1.9 mg/dL (1.8-2.4) Total Bilirubin 0.3 mg/dL (0.2-1.0) Aspartate Amino Transferase (AST) 20 U/L (15-37) Alanine Aminotransferase (ALT) 35 U/L (14-59) Alkaline Phosphatase 116 U/L (46-116) Total Protein 8.2 g/dL (6.4-8.2) Albumin 3.6 g/dL (3.4-5.0) Albumin/Globulin Ratio 0.8 (1.0-1.7) L Laboratory Tests 07/05/18 16:55 Laboratory Tests 07/05/18 16:55 EKG EKG [] Radiology/Procedures Radiology/Procedures IMPRESSION: 3 cm soft tissue mass is seen within the subcutaneous fat within the right lower quadrant of the abdomen which corresponds to the patient's pelvic abnormality and the abnormality seen on ultrasound. Its CT appearance is nonspecific. On ultrasound it is complex and could represent a small abscess. Clinical correlation is recommended. Electronically signed by: Jose Laurent MD (07/05/2018 5:29 PM) [facility] [] Ultrasound: FINDINGS: There is a complex lesion or collection at the area of concern. Measures 3.1 x 1.1 x 1.6 cm. This does not demonstrate hypervascularity. This contains low-level internal echoes. IMPRESSION: Nonspecific lesion at the area of concern. If there has been recent surgery in this area, this is compatible with an abscess or hematoma. If not, mass lesion not excludable and consider CT scan for further evaluation. Electronically signed by: Manolo Neumann MD (07/05/2018 4:24 PM) [id number] Course & Med Decision Making Course & Med Decision Making Pertinent Labs and Imaging studies reviewed. (See chart for details) [Discussed findings with patient, discussed abscess versus hematoma versus other mass. Discussed CT results and ultrasound results. Discussed clinical correlation, noted no overt sepsis or labs, no inflammatory reaction per labs, afebrile, not tachycardic. We have administered antibiotic here, will continue patient on antibiotics at home patient reports she wants to go home rather than stay in hospital again. Reports she will call her surgeon on Sunday for a follow-up as soon as possible. Patient noted to stay in hospital, but she would rather go home.] Dragon Disclaimer Dragon Disclaimer This electronic medical record was generated, in whole or in part, using a voice recognition dictation system. Departure Departure Impression: Primary Impression: Postoperative surgical complication involving skin Additional Impressions: Cellulitis Hypokalemia Disposition: HOME, SELF-CARE Referrals: MAURICIO HUFFMAN (PCP) Patient Instructions: Cellulitis, [id number], Cephalexin oral suspension Additional Instructions: As we discussed, your labs today showed no systemic infection at this time. Your Creatinine level was 1.9 Your BUN was 21 your GFR was 29. Your potassium was 3.1 today Contact your surgeon on sunday for a follow up. Contact your primary care provider to determine if your chronic hypokalemia needs to be addessed. Scripts Cephalexin (CEPHALEXIN) 500 Mg Capsule 1 CAP PO TID, #30 CAP Prov: KATIE CRISTINA APRN 07/05/18 Problem Qualifiers Primary Impression: Postoperative surgical complication involving skin Surgical complication type: unspecified Procedure type: dermatologic Qualified Codes: L76.82 - Other postprocedural complications of skin and subcutaneous tissue Additional Impressions: Cellulitis Site of cellulitis: trunk Site of cellulitis of trunk: abdominal wall Qualified Codes: L03.311 - Cellulitis of abdominal wall KATIE CRISTINA APRN July 05, 2018 15:53
[2018-07-05] MEDS ORDERED: IV NORMAL SALINE 1000ML BAG 1,000 ML IV ONE (16:00)
[2018-07-05] MEDS ORDERED: cefTRIAXone IV Push 1 GM VIAL. IVP ONE (16:00)
--- NOTE | 2018-07-05 16:27 | RAD ---
Limited abdomen ultrasound HISTORY: Palpable right lower quadrant mobile abdominal mass, abscess. Postsurgical. TECHNIQUE: Grayscale and color Doppler imaging performed at the area of concern. FINDINGS: There is a complex lesion or collection at the area of concern. Measures 3.1 x 1.1 x 1.6 cm. This does not demonstrate hypervascularity. This contains low-level internal echoes. IMPRESSION: Nonspecific lesion at the area of concern. If there has been recent surgery in this area, this is compatible with an abscess or hematoma. If not, mass lesion not excludable and consider CT scan for further evaluation. Electronically signed by: Manolo Neumann MD (07/05/2018 4:24 PM) [facility]
[2018-07-05 17:05] LABS: BASO # 0.1 x10^3/uL (0.0-0.2); BASO % 1 % (0-3); EOS # 1.7 x10^3/uL (0.0-0.7); EOS % 16 % (0-3); HEMOGLOBIN 12.8 g/dL (12.0-15.5); LYMPH # 1.8 x10^3/uL (1.0-4.8); LYMPH % 16 % (24-48); MEAN CORPUSCULAR HEMOGLOBIN 32 pg (25-35); MEAN CORPUSCULAR HGB CONC 35 g/dL (31-37); MEAN CORPUSCULAR VOLUME 91 fL (79-100); MONO # 0.5 x10^3/uL (0.0-1.1); MONO % 5 % (0-9); NEUT # 6.6 x10^3uL (1.8-7.7); NEUT % 62 % (31-73); PLATELET COUNT 254 x10^3/uL (140-400); RED BLOOD COUNT 4.05 x10^6/uL (3.50-5.40); RED CELL DISTRIBUTION WIDTH 13.9 % (11.5-14.5); WHITE BLOOD COUNT 10.8 x10^3/uL (4.0-11.0)
[2018-07-05 17:22] LABS: CALCIUM 9.2 mg/dL (8.5-10.1); CREATININE 1.9 mg/dL (0.6-1.0); POTASSIUM 3.1 mmol/L (3.5-5.1)
[2018-07-05 17:27] LABS: ALBUMIN 3.6 g/dL (3.4-5.0); ALBUMIN/GLOBULIN RATIO 0.8 (1.0-1.7); MAGNESIUM 1.9 mg/dL (1.8-2.4); TOTAL BILIRUBIN 0.3 mg/dL (0.2-1.0); TOTAL PROTEIN 8.2 g/dL (6.4-8.2)
--- NOTE | 2018-07-05 17:33 | RAD ---
CT scan of the abdomen and pelvis without contrast 07/05/2018 CLINICAL HISTORY: Palpable abnormality within the right lower quadrant of the abdomen. TECHNIQUE: Unenhanced, contiguous, 2 mm axial sections were obtained through the abdomen and pelvis. One or more of the following individualized dose reduction techniques were utilized for this study: 1. Automated exposure control. 2. Adjustment of the mA and/or kV according to patient size. 3. Use of iterative reconstruction technique. FINDINGS: Comparison is made to the patient's ultrasound of the right lower quadrant of the abdomen performed earlier today. Additional comparison is made to the patient's CT scan of the abdomen and pelvis dated 08/22/2011. Images through the lung bases demonstrate a 3.5 mm nodular opacity involving the right middle lobe which may represent a small area of subsegmental atelectasis. Dependent subsegmental atelectasis is seen involving both lower lobes, right greater than left. The liver, spleen, pancreas and adrenal glands are within normal limits. Multiple nonobstructing calculi are seen scattered throughout both kidneys. These measure 1 mm to 7 mm in size. Areas of lobulation/scarring are seen involving both kidneys. No ureteral calculus is seen. There is no evidence of obstruction of either collecting system. The abdominal aorta tapers normally. Surgical clips are seen within the gallbladder fossa consistent with a cholecystectomy. No free fluid or free air is seen within the abdomen. There is no evidence of bowel obstruction. The appendix is well-visualized and is within normal limits. Images through the pelvis demonstrate the urinary bladder distended with urine. The patient appears to be post hysterectomy. Calcifications are seen within the pelvis consistent with phleboliths. Scattered diverticula are seen involving the sigmoid colon. No inflammatory changes are seen in the adjacent fat. No adnexal mass is seen. No free fluid is noted. The patient is post midline abdominal/pelvic surgical incision. Within the subcutaneous fat within the right lower quadrant of the abdomen a somewhat oval-shaped soft tissue mass is seen. This is 8 mm deep to the skin surface. It measures 3 cm in greatest diameter. This corresponds to abnormality seen on the patient's CT scan. Its CT appearance is nonspecific. On ultrasound it is complex and could represent a small abscess. Clinical correlation is recommended. IMPRESSION: 3 cm soft tissue mass is seen within the subcutaneous fat within the right lower quadrant of the abdomen which corresponds to the patient's pelvic abnormality and the abnormality seen on ultrasound. Its CT appearance is nonspecific. On ultrasound it is complex and could represent a small abscess. Clinical correlation is recommended. Electronically signed by: Jose Laurent MD (07/05/2018 5:29 PM) [facility]
[2018-07-05 17:40] LABS: BILIRUBIN,URINE NEGATIVE (NEG); CLARITY,URINE CLEAR; COLOR,URINE YELLOW; NITRITE,URINE NEGATIVE (NEG); PROTEIN,URINE 30 mg/dL (NEG-TRACE); UROBILINOGEN,URINE 0.2 mg/dL (0.2 mg/dL)
[2018-07-05] MEDS ORDERED: CEPH500C PO (18:19)
[2018-07-05 18:36] LABS: BACTERIA,URINE FEW /HPF (0-FEW); SQUAMOUS EPITHELIAL CELL,UR FEW /LPF
[2018-07-05] MEDS ORDERED: POTASSIUM CHLORIDE 20 MEQ TABLET.ER. PO ONE (19:00)
[2018-07-05 20:12] LABS: % EOS 15 % (0-5); % LYMPHS 12 % (24-48); % MONOS 5 % (0-10); % SEGS 68 % (35-66)
[2018-07-05 20:13] LABS: PLT ESTIMATE ADEQUATE (ADEQUATE)
== END 2018-07-05 19:47 | disposition home or self-care (01) ==
LOC: ER 14:54
DX: L76.82 Other postprocedural complications of skin and subcutaneous tissue (principal); E87.6 Hypokalemia; L03.311 Cellulitis of abdominal wall; J44.9 Chronic obstructive pulmonary disease, unspecified; E78.00 Pure hypercholesterolemia, unspecified; I10 Essential (primary) hypertension; G43.909 Migraine, unspecified, not intractable, without status migrainosus; M19.90 Unspecified osteoarthritis, unspecified site; Z90.49 Acquired absence of other specified parts of digestive tract; Z98.890 Other specified postprocedural states; Z98.51 Tubal ligation status; Z90.721 Acquired absence of ovaries, unilateral
CPT/HCPCS: 36415; 74176; 76705; 80053; 81001; 83605; 83735; 85007; 85025; 87040; 87086; 96374; 99285; J0696; J7030

== ENCOUNTER 2018-07-29 18:42 | Emergency (ER) | payer MEDICAID ==
[~2018-07-29] VITALS: Ht 170.2 cm; Wt 102.1 kg
[~2018-07-29 18:42] MED LIST changes: +CEPH500C PO
[2018-07-29 18:54] VITALS: BP 133/78
[2018-07-29] MEDS: HYDROcodone/APAP 5/325MG 1 TAB TABLET PO ONE (19:32)
[2018-07-29] MEDS ORDERED: HYDR-3164 PO (19:47)
[2018-07-29] MEDS ORDERED: SULF1TAB24 PO (19:47)
--- NOTE | 2018-07-29 19:47 | PHYS DOC ---
Past Medical History Past Medical History: Asthma, COPD, Fibromyalgia, High Cholesterol, Hyper tension, Ovarian Cyst Additional Past Medical Histor: OA, DJD, MIGRANES, FIBROIDS, FIBROMYALGIA Past Surgical History: Cholecystectomy, , Oophorectomy, Tubal ligation Additional Past Surgical Histo: R OVARY REMOVED, Alcohol Use: None Drug Use: None Adult General Chief Complaint Chief Complaint: POST-OP PROBLEM HPI HPI Patient is a 42 year old female who presents with complaining of wound discharge. Patient had hysterectomy on June 24 at [facility] with midline incision that became infected with MRSA with open wound and treated with antibiotic and finished one week ago. Patient complaining of having wound discharge for the last few days and increasing of her pain. Patient states she was not able to get appointment with her primary care physician and decided to come to emergency room. Patient denies vomiting and diarrhea, urinary symptoms, fever and chills. Review of Systems Review of Systems Constitutional: Denies fever or chills [] Eyes: Denies change in visual acuity, redness, or eye pain [] HENT: Denies nasal congestion or sore throat [] Respiratory: Denies cough or shortness of breath [] Cardiovascular: No additional information not addressed in HPI [] GI: Denies abdominal pain, nausea, vomiting, bloody stools or diarrhea [] : Denies dysuria or hematuria [] Musculoskeletal: Denies back pain or joint pain [] Integument: Denies rash or skin lesions, reports wound discharge [] Neurologic: Denies headache, focal weakness or sensory changes [] Endocrine: Denies polyuria or polydipsia [] All other systems were reviewed and found to be within normal limits, except as documented in this note. Current Medications Current Medications Current Medications Medications (Trade) Dose Ordered Sig/[facility] Start Time Stop Time Status Last Admin Dose Admin Acetaminophen/ Hydrocodone Bitart (Lortab 5/325) 1 tab 1X ONCE 07/29/18 19:30 07/29/18 19:31 DC 07/29/18 19:32 1 TAB Allergies Allergies Allergies Coded Allergies Type Severity Reaction Last Updated Verified No Known Drug Allergies 08/03/14 No Physical Exam Physical Exam Constitutional: Well developed, well nourished, mild distress, non-toxic appearance. [] HENT: Normocephalic, atraumatic, oropharynx moist. Eyes: PERRLA, EOMI, conjunctiva normal, no discharge. [] Neck: Normal range of motion, no tenderness, supple, no stridor. [] Cardiovascular:Heart rate regular rhythm, no murmur [] Lungs & Thorax: Bilateral breath sounds clear to auscultation [] Abdomen: Bowel sounds normal, soft, no tenderness, no masses, no pulsatile masses. Midline abdominal below umbilicus surgical incision with open wound about 10 cm in the lower part of the incision with mild drainage of pussy material[] Skin: Warm, dry, no erythema, no rash. [] Back: No tenderness, no CVA tenderness. [] Extremities: No tenderness, no cyanosis, no clubbing, ROM intact, no edema. [] Neurologic: Alert and oriented X 3, normal motor function, normal sensory function, no focal deficits noted. [] Psychologic: Affect normal, judgement normal, mood normal. [] Current Patient Data Vital Signs Vital Signs Date Time Temp Pulse Resp B/P (MAP) Pulse Ox O2 Delivery O2 Flow Rate FiO2 07/29/18 19:32 20 96 07/29/18 18:54 98.8 85 133/78 (96) Room Air 98.8 EKG EKG [] Radiology/Procedures Radiology/Procedures [] Course & Med Decision Making Course & Med Decision Making Evaluation of patient in ER showed 42-year-old female patient with open chronic abdominal wound drainage of pus and sample for culture was obtained and prescription for Bactrim was given and patient was advised to follow-up with her surgeon in one or 2 days. Dragon Disclaimer Dragon Disclaimer This electronic medical record was generated, in whole or in part, using a voice recognition dictation system. Departure Departure Impression: Primary Impression: Postoperative wound infection Disposition: HOME, SELF-CARE (at 1944) Condition: STABLE Referrals: MAURICIO HUFFMAN (PCP) Patient Instructions: Wound Infection Additional Instructions: Follow-up with your surgeon in 1 or 2 days Drink plenty of liquids Return to ER if not getting better Thank you for visiting [facility]. We appreciate you trusting us with your care. If any additional problems come up don't hesitate to return to visit us. Please follow up with your primary care provider so they can plan additional care if needed and know about the problem that you had. If symptoms worsen come back to the Emergency Department. Any concerning symptoms that start such as chest pain, shortness of Air, weakness or numbness on one side of the body, running high fevers or any other concerning symptoms return to the ER. Scripts Hydrocodone/Apap 5-325 (NORCO 5-325 TABLET) 1 Each Tablet 1 TAB PO PRN Q6HRS PRN for PAIN, #10 TAB 0 Refills Prov: VENANCIO HAMILTON MD 07/29/18 Sulfamethoxazole/Trimethoprim (BACTRIM DS TABLET) 1 Each Tablet 1 TAB PO BID for infection, #14 TAB Prov: VENANCIO HAMILTON MD 07/29/18 VENANCIO AHMILTON MD Jul 29, 2018 19:47
== END 2018-07-29 19:54 | disposition home or self-care (01) ==
LOC: ER 18:42
DX: T81.49XA Infection following a procedure, other surgical site, initial encounter (principal); J44.9 Chronic obstructive pulmonary disease, unspecified; Z98.51 Tubal ligation status; E78.00 Pure hypercholesterolemia, unspecified; I10 Essential (primary) hypertension; G43.909 Migraine, unspecified, not intractable, without status migrainosus; Z90.49 Acquired absence of other specified parts of digestive tract; Z90.722 Acquired absence of ovaries, bilateral; Z90.710 Acquired absence of both cervix and uterus; Y83.8 Other surgical procedures as the cause of abnormal reaction of the patient, or of later complication, without mention of misadventure at the time of the procedure; Y92.89 Other specified places as the place of occurrence of the external cause
CPT/HCPCS: 87070; 87071; 87075; 99284

== ENCOUNTER 2018-08-14 19:58 | Emergency (ER) | payer SELFPAY ==
[~2018-08-14] VITALS: Ht 170.2 cm; Wt 99.8 kg
[~2018-08-14 19:58] MED LIST changes: +SULF1TAB24 PO
[2018-08-14] MEDS ORDERED: IV NORMAL SALINE 1000ML BAG 1,000 ML IV ONE (21:30)
[2018-08-14 21:36] LABS: BILIRUBIN,URINE NEGATIVE (NEG); CLARITY,URINE CLEAR; COLOR,URINE YELLOW; NITRITE,URINE NEGATIVE (NEG); PH,URINE 6.5; PROTEIN,URINE 30 mg/dL (NEG-TRACE); UROBILINOGEN,URINE 0.2 mg/dL (0.2 mg/dL)
[2018-08-14] MEDS ORDERED: ONDANSETRON PF 4 MG/2 ML VIAL. IV ONE (21:45)
[2018-08-14] MEDS ORDERED: fentaNYL PF VIAL 100 MCG/2 ML VIAL IV ONE (21:45)
[2018-08-14 21:47] LABS: BACTERIA,URINE FEW /HPF (0-FEW); RBC,URINE 0 /HPF (0-2); SQUAMOUS EPITHELIAL CELL,UR MANY /LPF; WBC,URINE >40 /HPF (0-4)
--- NOTE | 2018-08-14 22:07 | PHYS DOC ---
Past Medical History Past Medical History: Asthma, COPD, Fibromyalgia, High Cholesterol, Hypertension, Ovarian Cyst Additional Past Medical Histor: OA, DJD, MIGRANES, FIBROIDS, FIBROMYALGIA Past Surgical History: Cholecystectomy, , Hysterectomy, Oophorectomy, Tubal ligation Additional Past Surgical Histo: R OVARY REMOVED, Alcohol Use: None Drug Use: None Adult General Chief Complaint Chief Complaint: ABDOMINAL PAIN HPI HPI Patient is a 42 year old female who presents with sharp constant upper abdominal pain since August 08. Patient states she has nausea and chills. Patient states she's only been taking Tylenol for pain. Patient currently has a infected hysterectomy site that she's been seen at for his packing the wound daily. Vital signs within normal limits she is afebrile. Review of Systems Review of Systems Constitutional: Denies fever or chills [] Eyes: Denies change in visual acuity, redness, or eye pain [] HENT: Denies nasal congestion or sore throat [] Respiratory: Denies cough or shortness of breath [] Cardiovascular: No additional information not addressed in HPI [] GI: upper mid abdominal pain, nausea, denies vomiting, bloody stools or diarrhea [] : Denies dysuria or hematuria [] Musculoskeletal: Denies back pain or joint pain [] Integument: Post hysterectomy wound infection that is covered with surgical d ressing. Denies rash or skin lesions [] Neurologic: Denies headache, focal weakness or sensory changes [] Endocrine: Denies polyuria or polydipsia [] All other systems were reviewed and found to be within normal limits, except as documented in this note. Current Medications Current Medications Current Medications Medications (Trade) Dose Ordered Sig/Lan Start Time Stop Time Status Last Admin Dose Admin Fentanyl Citrate (Fentanyl 2ml Vial) 50 mcg 1X ONCE 08/14/18 21:45 08/14/18 21:46 DC 08/14/18 21:55 50 MCG Ondansetron HCl (Zofran) 4 mg 1X ONCE 08/14/18 21:45 08/14/18 21:46 DC 08/14/18 21:55 4 MG Sodium Chloride 1,000 ml @ 1,000 mls/hr 1X ONCE 08/14/18 21:30 08/14/18 22:29 DC 08/14/18 21:55 1,000 MLS/HR Allergies Allergies Allergies Coded Allergies Type Severity Reaction Last Updated Verified I S O L A T I O N *CONTACT* Allergy Unknown 08/05/18 Yes No Known Medication Allergies Allergy Unknown 08/05/18 Yes Physical Exam Physical Exam Constitutional: Well developed, well nourished, no acute distress, non-toxic appearance. [] HENT: Normocephalic, atraumatic, bilateral external ears normal, oropharynx moist, no oral exudates, nose normal. [] Eyes: PERRLA, EOMI, conjunctiva normal, no discharge. [] Neck: Normal range of motion, no tenderness, supple, no stridor. [] Cardiovascular:Heart rate regular rhythm, no murmur [] Lungs & Thorax: Bilateral breath sounds clear to auscultation [] Abdomen: Bowel sounds normal, soft but firm to mid epigastric area, mid upper tenderness, no masses, no pulsatile masses. [] Skin: Warm, dry, no erythema, no rash. [] Back: No tenderness, no CVA tenderness. [] Extremities: No tenderness, no cyanosis, no clubbing, ROM intact, no edema. [] Neurologic: Alert and oriented X 3, normal motor function, normal sensory function, no focal deficits noted. [] Psychologic: Affect normal, judgement normal, mood normal. [] Current Patient Data Vital Signs Vital Signs Date Time Temp Pulse Resp B/P (MAP) Pulse Ox O2 Delivery O2 Flow Rate FiO2 08/14/18 21:05 99.4 80 16 128/84 (99) 100 Room Air 99.4 Lab Values Laboratory Tests Test 08/14/18 21:10 08/14/18 21:46 Urine Collection Type Unknown Urine Color Yellow Urine Clarity Clear Urine pH 6.5 Urine Specific [place] 1.010 Urine Protein 30 mg/dL (NEG-TRACE) Urine Glucose (UA) Negative mg/dL (NEG) Urine Ketones (Stick) Negative mg/dL (NEG) Urine Blood Negative (NEG) Urine Nitrite Negative (NEG) Urine Bilirubin Negative (NEG) Urine Urobilinogen Dipstick 0.2 mg/dL (0.2 mg/dL) Urine Leukocyte Esterase Large (NEG) Urine RBC 0 /HPF (0-2) Urine WBC >40 /HPF (0-4) Urine Squamous Epithelial Cells Many /LPF Urine Bacteria Few /HPF (0-FEW) White Blood Count 9.9 x10^3/uL (4.0-11.0) Red Blood Count 3.73 x10^6/uL (3.50-5.40) Hemoglobin 11.7 g/dL (12.0-15.5) L Hematocrit 34.0 % (36.0-47.0) L Mean Corpuscular Volume 91 fL (79-100) Mean Corpuscular Hemoglobin 31 pg (25-35) Mean Corpuscular Hemoglobin Concent 34 g/dL (31-37) Red Cell Distribution Width 15.3 % (11.5-14.5) H Platelet Count 254 x10^3/uL (140-400) Neutrophils (%) (Auto) 73 % (31-73) Lymphocytes (%) (Auto) 14 % (24-48) L Monocytes (%) (Auto) 7 % (0-9) Eosinophils (%) (Auto) 6 % (0-3) H Basophils (%) (Auto) 1 % (0-3) Neutrophils # (Auto) 7.2 x10^3/uL (1.8-7.7) Lymphocytes # (Auto) 1.4 x10^3/uL (1.0-4.8) Monocytes # (Auto) 0.6 x10^3/uL (0.0-1.1) Eosinophils # (Auto) 0.6 x10^3/uL (0.0-0.7) Basophils # (Auto) 0.1 x10^3/uL (0.0-0.2) Sodium Level 138 mmol/L (136-145) Potassium Level 3.3 mmol/L (3.5-5.1) L Chloride Level 103 mmol/L (98-107) Carbon Dioxide Level 24 mmol/L (21-32) Anion Gap 11 (6-14) Blood Urea Nitrogen 17 mg/dL (7-20) Creatinine 1.9 mg/dL (0.6-1.0) H Estimated GFR (Cockcroft-Gault) 29.0 BUN/Creatinine Ratio 9 (6-20) Glucose Level 88 mg/dL (70-99) Calcium Level 8.7 mg/dL (8.5-10.1) Total Bilirubin 0.3 mg/dL (0.2-1.0) Aspartate Amino Transferase (AST) 20 U/L (15-37) Alanine Aminotransferase (ALT) 29 U/L (14-59) Alkaline Phosphatase 95 U/L (46-116) Total Protein 8.9 g/dL (6.4-8.2) H Albumin 3.3 g/dL (3.4-5.0) L Albumin/Globulin Ratio 0.6 (1.0-1.7) L Lipase 167 U/L (73-393) Laboratory Tests 08/14/18 21:46 Laboratory Tests 08/14/18 21:46 EKG EKG [] Radiology/Procedures Radiology/Procedures [] Impressions: [facility] [address] [place] [address] IMAGING REPORT Signed PATIENT: YSABEL MCCALL ACCOUNT: [id number] : 1975 LOCATION: ER AGE: 42 SEX: F EXAM STATUS: REG ER ORD. PHYSICIAN: EVERETT OVALLE APRN REASON: abd pain, RECENT HYSTERECTOMY PROCEDURE: CT ABDOMEN PELVIS WO CONTRAST CT abdomen pelvis without contrast. HISTORY: Abdominal pain, recent hysterectomy, elevated creatinine CT scan of the abdomen pelvis was done without contrast. Lung bases are clear without infiltrates. There is no pleural effusion. There is mild scoliosis. There is mild lower lumbar facet arthritis. There is degenerative disc disease at L5-S1. Liver is normal in appearance. The patient's had a cholecystectomy. Spleen and adrenal glands are normal. Pancreas is normal. There are multiple bilateral renal calculi. There is scarring of the kidneys especially on the left. A ureteral calculus is not identified. Bladder is mildly distended. Patient's had a hysterectomy. Left ovary is enlarged measuring 5.2 x 4.6 x 4.9 cm. There is a hypoechoic focus in the ovary which suggests a cyst measuring 3.1 cm. There is no bowel obstruction or ascites. Appendix is normal. There is a is no intra-abdominal fluid collection or abscess. There is inflammation of the anterior abdominal wall including an open wound at the midline below the umbilicus. There is no definitive abscess. IMPRESSION: 1. Multiple bilateral intrarenal calculi. 2. No ureteral calculus or hydronephrosis. 3. Normal appendix. 4. Enlarged left ovary with a 3 cm cyst. 4. Inflammation in the anterior abdominal wall without a definite abscess. PQRS Compliance Statement: One or more of the following individualized dose reduction techniques were utilized for this examination: 1. Automated exposure control 2. Adjustment of the mA and/or kV according to patient size 3. Use of iterative reconstruction technique Electronically signed by: Clif Whitney MD (08/14/2018 11:01 PM) [facility] DICTATED and SIGNED BY: CLIF WHITNEY MD DATE: 08/14/182300 Course & Med Decision Making Course & Med Decision Making Patient is a 42 year old female who presents with sharp constant upper abdominal pain since August 08. Patient states she has nausea and chills. Patient states she's only been taking Tylenol for pain. Patient currently has a infected hysterectomy site that she's been seen at Drs. for his packing the wound daily. Vital signs within normal limits she is afebrile. Patient has a surgical dressing over her abdominal wound. Alert and oriented. Speaks in full clear sentences. Skin is pink warm and dry. Denies shortness of breath or chest pain. She denies any dysuria symptoms diarrhea, constipation. Abdomen is tender to palpation to mid epigastric area. Patient states that she's felt more bloated than normal. Abdomen is firmer to the mid epigastric area. Lungs are clear to auscultation all lobes. Heart rate regular without murmur. CT ABD PELV shows 1. Multiple bilateral intrarenal calculi. 2. No ureteral calculus or hydronephrosis. 3. Normal appendix. 4. Enlarged left ovary with a 3 cm cyst. 4. Inflammation in the anterior abdominal wall without a definite abscess. Urinalysis shows UTI. Dragon Disclaimer Dragon Disclaimer This electronic medical record was generated, in whole or in part, using a voice recognition dictation system. Departure Departure Impression: Primary Impression: UTI (urinary tract infection) Disposition: HOME, SELF-CARE Condition: STABLE Referrals: MAURICIO HUFFMAN (PCP) Patient Instructions: Urinary Tract Infection Additional Instructions: Follow-up her primary care provider. Take medication as prescribed. Drink plenty of fluids. Scripts Cephalexin (KEFLEX) 500 Mg Capsule 1 CAP PO BID, #14 CAP Prov: EVERETT OVALLE STRINGED INSTRUMENT REPAIRER 08/14/18 Hydrocodone/Apap 5-325 (NORCO 5-325 TABLET) 1 Each Tablet 1 TAB PO PRN Q6HRS PRN for PAIN, #10 TAB 0 Refills Prov: EVERETT OVALLE APRN 08/14/18 Problem Qualifiers Primary Impression: UTI (urinary tract infection) Urinary tract infection type: site unspecified Hematuria presence: without hematuria Qualified Codes: N39.0 - Urinary tract infection, site not specified EVERETT OVALLE APRN Aug 14, 2018 22:07
[2018-08-14 22:08] LABS: BASO # 0.1 x10^3/uL (0.0-0.2); BASO % 1 % (0-3); EOS # 0.6 x10^3/uL (0.0-0.7); EOS % 6 % (0-3); HEMOGLOBIN 11.7 g/dL (12.0-15.5); LYMPH # 1.4 x10^3/uL (1.0-4.8); LYMPH % 14 % (24-48); MEAN CORPUSCULAR HEMOGLOBIN 31 pg (25-35); MEAN CORPUSCULAR HGB CONC 34 g/dL (31-37); MEAN CORPUSCULAR VOLUME 91 fL (79-100); MONO # 0.6 x10^3/uL (0.0-1.1); MONO % 7 % (0-9); NEUT # 7.2 x10^3/uL (1.8-7.7); NEUT % 73 % (31-73); PLATELET COUNT 254 x10^3/uL (140-400); RED BLOOD COUNT 3.73 x10^6/uL (3.50-5.40); RED CELL DISTRIBUTION WIDTH 15.3 % (11.5-14.5); WHITE BLOOD COUNT 9.9 x10^3/uL (4.0-11.0)
[2018-08-14 22:22] LABS: CALCIUM 8.7 mg/dL (8.5-10.1); CREATININE 1.9 mg/dL (0.6-1.0); POTASSIUM 3.3 mmol/L (3.5-5.1)
[2018-08-14 22:28] LABS: ALBUMIN 3.3 g/dL (3.4-5.0); ALBUMIN/GLOBULIN RATIO 0.6 (1.0-1.7); TOTAL BILIRUBIN 0.3 mg/dL (0.2-1.0); TOTAL PROTEIN 8.9 g/dL (6.4-8.2)
--- NOTE | 2018-08-14 23:04 | RAD ---
CT abdomen pelvis without contrast. HISTORY: Abdominal pain, recent hysterectomy, elevated creatinine CT scan of the abdomen pelvis was done without contrast. Lung bases are clear without infiltrates. There is no pleural effusion. There is mild scoliosis. There is mild lower lumbar facet arthritis. There is degenerative disc disease at L5-S1. Liver is normal in appearance. The patient's had a cholecystectomy. Spleen and adrenal glands are normal. Pancreas is normal. There are multiple bilateral renal calculi. There is scarring of the kidneys especially on the left. A ureteral calculus is not identified. Bladder is mildly distended. Patient's had a hysterectomy. Left ovary is enlarged measuring 5.2 x 4.6 x 4.9 cm. There is a hypoechoic focus in the ovary which suggests a cyst measuring 3.1 cm. There is no bowel obstruction or ascites. Appendix is normal. There is a is no intra-abdominal fluid collection or abscess. There is inflammation of the anterior abdominal wall including an open wound at the midline below the umbilicus. There is no definitive abscess. IMPRESSION: 1. Multiple bilateral intrarenal calculi. 2. No ureteral calculus or hydronephrosis. 3. Normal appendix. 4. Enlarged left ovary with a 3 cm cyst. 4. Inflammation in the anterior abdominal wall without a definite abscess. PQRS Compliance Statement: One or more of the following individualized dose reduction techniques were utilized for this examination: 1. Automated exposure control 2. Adjustment of the mA and/or kV according to patient size 3. Use of iterative reconstruction technique Electronically signed by: Clif Whitney MD (08/14/2018 11:01 PM) [facility]
[2018-08-14] MEDS ORDERED: CEPH-264 PO (23:43)
[2018-08-14] MEDS ORDERED: HYDR-3164 PO (23:43)
[2018-08-14 23:58] VITALS: BP 114/65
== END 2018-08-15 00:08 | disposition home or self-care (01) ==
LOC: ER 19:58
DX: N39.0 Urinary tract infection, site not specified (principal); R10.10 Upper abdominal pain, unspecified; R10.13 Epigastric pain; R11.0 Nausea; J44.9 Chronic obstructive pulmonary disease, unspecified; E78.00 Pure hypercholesterolemia, unspecified; I10 Essential (primary) hypertension; G43.909 Migraine, unspecified, not intractable, without status migrainosus; M19.90 Unspecified osteoarthritis, unspecified site; Z90.49 Acquired absence of other specified parts of digestive tract; Z98.890 Other specified postprocedural states; Z90.710 Acquired absence of both cervix and uterus; Z98.51 Tubal ligation status; Z90.721 Acquired absence of ovaries, unilateral; Z91.041 Radiographic dye allergy status
CPT/HCPCS: 36415; 74176; 80053; 81001; 83690; 85025; 87086; 96374; 96375; 99285; J2405; J3010; J7030

== ENCOUNTER 2019-04-11 23:59 | Emergency (ER) | payer SELFPAY ==
[~2019-04-11] VITALS: Ht 170.2 cm; Wt 103.0 kg
[~2019-04-11 23:59] MED LIST changes: +CEPH-264 PO; +MORP-15 PO; -MORP15TA3 PO
[2019-04-12 00:20] VITALS: BP 153/89
--- NOTE | 2019-04-12 01:24 | PHYS DOC ---
Past Medical History Past Medical History: Asthma, COPD, Fibromyalgia, High Cholesterol, Hyper tension, Ovarian Cyst Additional Past Medical Histor: OA, DJD, MIGRANES, FIBROIDS, FIBROMYALGIA Past Surgical History: Cholecystectomy, , Hysterectomy, Oophorectomy, Tubal ligation Additional Past Surgical Histo: R OVARY REMOVED, Smoking Status: Never Smoker Alcohol Use: None Drug Use: None Adult General Chief Complaint Chief Complaint: Congestion HPI HPI Patient is a 43 year old female who presents to the emergency room with complaints of nasal congestion with clear drainage and sinus pressure for the last month and a half. She denies any fever, cough, shortness of breath, ear pain, or sore throat. Patient states she has been using saline nasal spray at home with no relief of her symptoms. Patient denies any wheezing, shortness of breath, or difficulty breathing. She reports a history of nasal congestion and states that she has been taking Mucinex [id number] with no relief of her symptoms. She currently denies pain. Review of Systems Review of Systems Complete ROS is negative unless otherwise noted in HPI. Allergies Allergies Allergies Coded Allergies Type Severity Reaction Last Updated Verified I S O L A T I O N *CONTACT* Allergy Unknown 08/05/18 Yes No Known Medication Allergies Allergy Unknown 08/05/18 Yes Physical Exam Physical Exam See Above Constitutional: Well developed, well nourished, no acute distress, non-toxic appearance. [] HENT: Normocephalic, atraumatic, bilateral external ears normal, oropharynx moist, posterior pharynx normal, no oral exudates, nose congested bilateral with clear drainage Eyes: PERRLA, EOMI, conjunctiva normal, no discharge. [] Neck: Normal range of motion, no stridor. [] Cardiovascular:Heart rate regular rhythm Lungs & Thorax: Respirations even and unlabored, no retractions, no respiratory distress Skin: Warm, dry, no erythema, no rash. [] Neurologic: Alert and oriented X 3, no focal deficits noted. [] Psychologic: Affect normal, judgement normal, mood normal. [] Current Patient Data Vital Signs Vital Signs Date Time Temp Pulse Resp B/P (MAP) Pulse Ox O2 Delivery O2 Flow Rate FiO2 04/12/19 00:20 98.2 89 18 153/89 (110) 96 Room Air 98.2 EKG EKG [] Radiology/Procedures Radiology/Procedures [] Course & Med Decision Making Course & Med Decision Making Pertinent Labs and Imaging studies reviewed. (See chart for details) Dx: medical screening exam A medical screening exam was performed, patient was found to have no emergent medical condition, vital signs were stable. The POC would've included URI instructions. However, the patient eloped after talking with registration. [] [] Dragon Disclaimer Dragon Disclaimer This electronic medical record was generated, in whole or in part, using a voice recognition dictation system. Departure Departure Impression: Primary Impression: Encounter for medical screening examination Disposition: 01 HOME, SELF-CARE (pt eloped after speaking with registration) Condition: STABLE Referrals: MAURICIO HUFFMAN (PCP) DUKE DE ANDA APRN Apr 12, 2019 01:24
== END 2019-04-12 00:50 | disposition home or self-care (01) ==
LOC: ER 23:59
DX: R09.81 Nasal congestion (principal); J44.9 Chronic obstructive pulmonary disease, unspecified; E78.00 Pure hypercholesterolemia, unspecified; I10 Essential (primary) hypertension; M79.7 Fibromyalgia; G43.909 Migraine, unspecified, not intractable, without status migrainosus; Z90.49 Acquired absence of other specified parts of digestive tract; Z90.89 Acquired absence of other organs; Z90.710 Acquired absence of both cervix and uterus; Z98.51 Tubal ligation status; Z98.890 Other specified postprocedural states; Z88.8 Allergy status to other drugs, medicaments and biological substances
CPT/HCPCS: 99281